=== PATIENT | female | born 1970 | race Two or more races ===

== ENCOUNTER 2016-10-19 08:38 | Day surgery (SDC) | payer OTHER ==
[2016-10-19 09:29] VITALS: TEMP 97.8
[2016-10-19 13:13] VITALS: BP 98/59; PULSE 76
== END 2016-10-19 13:15 | disposition home or self-care (01) ==
LOC: JASU-SURG 08:38
PROVIDERS: ATTEND Urology
PROC: 0T25X0Z Change Drainage Device in Kidney, External Approach (ICD-10-PCS; principal; 2016-10-19)
DX: N13.9 Obstructive and reflux uropathy, unspecified (principal); N20.0 Calculus of kidney
CPT/HCPCS: 50435; 76000-TC; 84703; A4358; C1769; C1887; C1894

== ENCOUNTER 2016-11-08 17:35 | Inpatient (IN) | payer OTHER ==
--- NOTE | 2016-11-08 17:57 | PDOC ---
History of Present Illness - General History Source: Patient Exam Limitations: No Limitations - History of Present Illness Initial Comments: 11/08/16 18:56 Patient is a 46 year old female with a significant past medical history of DM2, hyperlipidemia, hypertension, kidney stones with ureteral stent done October 2016 who presents to the ED sent for admission by Dr. Alcantar. Patient states that the doctor has plan to change the stent and lithotripsy. Patient is a poor historian, will contact the urologist. <Marylu Haynes - Last Filed: 11/08/16 19:52> <Dimple Portillo - Last Filed: 11/08/16 20:24> - General Chief Complaint: Pain Stated Complaint: URINARY PROBLEM/LOWER BACK PAIN Time Seen by Provider: 11/08/16 17:57 Past History <Marylu Haynes - Last Filed: 11/08/16 19:52> - Past Medical History Diabetes: Yes HTN: Yes Kidney Stones: Yes - Surgical History Cholecystectomy: Yes - Psycho/Social/Smoking Cessation Hx Anxiety: No Suicidal Ideation: No Smoking History: Never smoked Hx Alcohol Use: No Drug/Substance Use Hx: No Substance Use Type: None Hx Substance Use Treatment: No <Dimple Portillo - Last Filed: 11/08/16 20:24> - Past Medical History Allergies/Adverse Reactions: Allergies Allergy/AdvReac Type Severity Reaction Status Date / Time No Known Drug Allergies Allergy Verified 11/08/16 17:41 Home Medications: Ambulatory Orders Enalapril Maleate [Vasotec] 20 mg PO BID 11/08/16 Insulin Regular [NOVOLIN R VIAL *IVPUSH / ER / ICU Only*] 10 units SQ TID Metformin HCl [Metformin HCl ER] 1,000 mg PO DAILY 11/08/16 Review of Systems - Review of Systems Able to Perform ROS?: Yes Comments:: 11/08/16 18:56 CONSTITUTIONAL: Absent: fever, chills, diaphoresis, generalized weakness, malaise, loss of appetite HEENT: Absent: rhinorrhea, nasal congestion, throat pain, throat swelling, difficulty swallowing, mouth swelling, ear pain, eye pain, visual Changes CARDIOVASCULAR: Absent: chest pain, syncope, palpitations, irregular heart rate, lightheadedness , peripheral edema RESPIRATORY: Absent: cough, shortness of breath, dyspnea with exertion, orthopnea, wheezing, stridor, hemoptysis GASTROINTESTINAL: Absent: abdominal pain, abdominal distension, nausea, vomiting, diarrhea, constipation, melena, hematochezia GENITOURINARY: Absent: dysuria, frequency, urgency, hesitancy, hematuria, flank pain, genital pain MUSCULOSKELETAL: Absent: myalgia, arthralgia, joint swelling SKIN: Absent: rash, itching, pallor HEMATOLOGIC/IMMUNOLOGIC: Absent: easy bleeding, easy bruising, lymphadenopathy, frequent infections ENDOCRINE: Absent: unexplained weight gain, unexplained weight loss, heat intolerance, cold intolerance NEUROLOGIC: Absent: headache, focal weakness or paresthesias, dizziness, unsteady gait, seizure, mental status changes, bladder or bowel incontinence PSYCHIATRIC: Absent: anxiety, depression, suicidal or homicidal ideation, hallucinations. <Marylu Haynes - Last Filed: 11/08/16 19:52> *Physical Exam - Vital Signs Last Vital Signs Temp Pulse Resp BP Pulse Ox 99.0 F 93 H 18 131/85 98 11/08/16 17:37 11/08/16 17:37 11/08/16 17:37 11/08/16 17:37 11/08/16 17:37 - Physical Exam Comments: 11/08/16 18:57 GENERAL: Well developed, well nourished. Awake and alert. No acute distress. HEENT: Normocephalic, atraumatic. PERRLA, EOMI. No conjunctival pallor. Sclera are non- icteric. Moist mucous membranes. Oropharynx is clear. NECK: Supple. Full ROM. No JVD. Carotid pulses 2+ and symmetric, without bruits. No thyromegaly. No lymphadenopathy. CARDIOVASCULAR: Regular rate and rhythm. No murmurs, rubs, or gallops. Distal pulses are 2+ and symmetric. PULMONARY: No evidence of respiratory distress. Lungs clear to auscultation bilaterally. No wheezing, rales or rhonchi. ABDOMINAL: Soft. Non-tender. Non-distended. No rebound or guarding. No organomegaly. Normoactive bowel sounds. MUSCULOSKELETAL Normal range of motion at all joints. No bony deformities or tenderness. No CVA tenderness. EXTREMITIES: No cyanosis. No clubbing. No edema. No calf tenderness. SKIN: Warm and dry. Normal capillary refill. No rashes. No jaundice. NEUROLOGICAL: Alert, awake, appropriate. Cranial nerves 2-12 intact. No deficits to light touch and temperature in face, upper extremities and lower extremities. No motor deficits in the in face, upper extremities and lower extremities. Normoreflexic in the upper and lower extremities. Normal speech. PSYCHIATRIC: Cooperative. Good eye contact. Appropriate mood and affect. <Marylu Haynes - Last Filed: 11/08/16 19:52> - Vital Signs Last Vital Signs Temp Pulse Resp BP Pulse Ox 99.0 F 93 H 18 131/85 98 11/08/16 17:37 11/08/16 17:37 11/08/16 17:37 11/08/16 17:37 11/08/16 17:37 <Dimple Portillo - Last Filed: 11/08/16 20:24> ED Treatment Course - LABORATORY CBC & Chemistry Diagram: 11/08/16 19:00 11/08/16 19:00 <Marylu Haynes - Last Filed: 11/08/16 19:52> - LABORATORY CBC & Chemistry Diagram: 11/08/16 19:00 11/08/16 19:00 <Dimple Portillo - Last Filed: 11/08/16 20:24> Medical Decision Making - Medical Decision Making 11/08/16 19:10 A call was placed to Dr. Alcantar, awaiting a call back from Dr. Garcia who is special education kindergarten teacher. 11/08/16 19:[address] Garcia, who will contact Dr. Alcantar to discuss the case and will call back. 11/08/16 19:[address] Alcantar, who states that patient needs admission by hospitalist for nephrostomy tube replacement, dilatation and stone removal. <Marylu Haynes - Last Filed: 11/08/16 19:52> - Medical Decision Making 11/08/16 20:01 46-year-old female sent in by her clinic in [place] for admission for nephrostomy tube change. This nephrostomy tube was placed by Dr. Alcantar on October 19. She has had prior nephrostomy tubes placed in the past She has a long-standing history of kidney stones causing obstruction -No fever, no nausea, no vomiting and no hematuria Past medical history significant for type 2 diabetes with insulin use, hyperlipidemia, hypertension UA shows that she does have a urinary tract infection -He was started on Levaquin IV Review of her labs shows a normal CBC, hyperglycemia with glucose of 135. Her createnine is 1.2. I have no prior labs available I did speak with Dr. Marcello Alcantar and he will be the urologist on this case. The plan is to replace this nephrostomy tube and also to dilatation and stone removal 11/08/16 20:04 11/08/16 20:12 <Dimple Portillo - Last Filed: 11/08/16 20:24> *DC/Admit/Observation/Transfer - Attestations Scribe Attestion: 11/08/16 18:58 Documentation prepared by CELESTE Garcia, acting as medical anthropology director for Dimple Portillo MD. <Marylu Haynes - Last Filed: 11/08/16 19:52> - Discharge Dispostion Admit: Yes <Dimple Portillo - Last Filed: 11/08/16 20:24> Diagnosis at time of Disposition: Calculus of kidney, Complication of nephrostomy Urinary tract infection Qualifiers: Urinary tract infection type: site unspecified Hematuria presence: without hematuria Qualified Code(s): N39.0 - Urinary tract infection, site not specified - Referrals Referrals: Son Frank [Primary Care Provider] -
[2016-11-08 19:11] LABS: BASOPHIL 0.8 % (0-2.0); EOSINOPHIL 6.5 % (0-4.5); MCHC 32.5 g/dl (32.0-36.0); MEAN CELL VOLUME 83.1 fl (80-96); MEAN PLT VOLUME 7.7 fl (7.5-11.1); NEUTROPHILS 54.5 % (42.8-82.8); PLATELET COUNT 290 K/MM3 (134-434); RDW 14.2 % (11.6-15.6)
[2016-11-08 19:12] LABS: URINE APPEARANCE SLCLOUDY; URINE BILIRUBIN NEGATIVE (NEGATIVE); URINE COLOR STRAW; URINE GLUCOSE (UA) NEGATIVE (NEGATIVE); URINE KETONE NEGATIVE (NEGATIVE); URINE NITRITE NEGATIVE (NEGATIVE); URINE PROTEIN NEGATIVE (NEGATIVE); URINE UROBILINOGEN NEGATIVE E.U./dl (0.2-1.0)
[2016-11-08 19:13] LABS: URINE BLOOD 1+ (NEGATIVE); URINE LEUK ESTERASE 3+ (NEGATIVE)
[2016-11-08 19:16] LABS: URINE BACTERIA RARE /hpf (NONE SEEN); URINE MUCUS RARE; URINE RBC 28 /hpf (0-3); URINE WBC 263 /hpf (3-5)
[2016-11-08 19:26] LABS: INR 1.02 (0.82-1.09); PROTHROMBIN TIME (PATIENT) 11.2 SEC (9.98-11.88)
[2016-11-08 19:35] LABS: ALBUMIN 3.2 g/dl (3.4-5.0); BILIRUBIN,TOTAL 0.4 mg/dL (0.2-1.0); CALCIUM 9.4 mg/dL (8.5-10.1); COCKROFT - GAULT 72.624; CREATININE 1.2 mg/dL (0.55-1.02); TOT PROT 7.7 g/dl (6.4-8.2)
[2016-11-08] MEDS ORDERED: LEVOFLOXACIN 500 MG IVPB 100 ML IVPB ONE ×2 (19:45→19:52)
--- NOTE | 2016-11-08 21:03 | HP ---
<Marilyn Lewis - Last Filed: 11/09/16 00:37> CHIEF COMPLAINT: Presents for ureteral stent replacement PCP: Dr. Frank HISTORY OF PRESENT ILLNESS: 46 yo F with a PMHx of DM, HLD, HTN, kidney stones s/p ureteral stent in october, who was sent in by Dr. Alcantar for stent replacement and lithotripsy. Patient denies nausea, vomiting and diarrhea. Patient denies chest pain, palpitations and lightheadedness. ER course was notable for: (1)positive UA started on levaquin (2)ED contacted Dr. Alcantar whos planning ureteral stent replacement and lithotripsy in AM. Recent Travel: Denies PAST MEDICAL HISTORY: DM, HLD, HTN, kidney stones s/p ureteral stent in october PAST SURGICAL HISTORY: Ureteral stent placement 10/18 Social History: Smoking: Denies Alcohol: Denies Drugs: Denies Family History: Allergies No Known Drug Allergies Allergy (Verified 11/08/16 17:41) HOME MEDICATIONS: Home Medications Medication Instructions Recorded Enalapril Maleate [Vasotec] 20 mg PO BID 11/08/16 Insulin Regular [NOVOLIN R VIAL 10 units SQ TID 11/08/16 *IVPUSH / ER / ICU Only*] Metformin HCl [Metformin HCl ER] 1,000 mg PO DAILY 11/08/16 REVIEW OF SYSTEMS CONSTITUTIONAL: Absent: fever, chills, diaphoresis, generalized weakness, malaise, loss of appetite, weight change HEENT: Absent: rhinorrhea, nasal congestion, throat pain, throat swelling, difficulty swallowing, mouth swelling, ear pain, eye pain, visual changes CARDIOVASCULAR: Absent: chest pain, syncope, palpitations, irregular heart rate, lightheadedness , peripheral edema RESPIRATORY: Absent: cough, shortness of breath, dyspnea with exertion, orthopnea, wheezing, stridor, hemoptysis GASTROINTESTINAL: Absent: abdominal pain, abdominal distension, nausea, vomiting, diarrhea, constipation, melena, hematochezia GENITOURINARY: Absent: dysuria, frequency, urgency, hesitancy, hematuria, flank pain, genital pain MUSCULOSKELETAL: Absent: myalgia, arthralgia, joint swelling, back pain, neck pain SKIN: Absent: rash, itching, pallor HEMATOLOGIC/IMMUNOLOGIC: Absent: easy bleeding, easy bruising, lymphadenopathy, frequent infections ENDOCRINE: Absent: unexplained weight gain, unexplained weight loss, heat intolerance, cold intolerance NEUROLOGIC: Absent: headache, focal weakness or paresthesias, dizziness, unsteady gait, seizure, mental status changes, bladder or bowel incontinence PSYCHIATRIC: Absent: anxiety, depression, suicidal or homicidal ideation, hallucinations. PHYSICAL EXAMINATION Vital Signs - 24 hr 11/08/16 22:32 Temperature 98.6 F Pulse Rate [ 96 H Right Radial] Respiratory 20 Rate Blood Pressure 99/49 [Right Arm] O2 Sat by Pulse 98 Oximetry (%) GENERAL: Awake, alert, and fully oriented, in no acute distress. HEAD: Normal with no signs of trauma. EYES: Pupils equal, round and reactive to light, extraocular movements intact, sclera anicteric, conjunctiva clear. No lid lag. EARS, NOSE, THROAT: Ears normal, nares patent, oropharynx clear without exudates. Moist mucous membranes. NECK: Normal range of motion, supple without lymphadenopathy, JVD, or masses. LUNGS: Breath sounds equal, clear to auscultation bilaterally. No wheezes, and no crackles. No accessory muscle use. HEART: Regular rate and rhythm, normal S1 and S2 without murmur, rub or gallop. ABDOMEN: Soft, nontender, not distended, normoactive bowel sounds, no guarding, no rebound, no masses. No hepatomegaly or splenomegaly. MUSCULOSKELETAL: Normal range of motion at all joints. No bony deformities or tenderness. R CVA tenderness. R ureteral bag in place draining clear urine. UPPER EXTREMITIES: 2+ pulses, warm, well-perfused. No cyanosis. No clubbing. No peripheral edema. LOWER EXTREMITIES: 2+ pulses, warm, well-perfused. No calf tenderness. No peripheral edema. NEUROLOGICAL: Cranial nerves II-XII intact. Normal speech. Gait not assessed. PSYCHIATRIC: Cooperative. Good eye contact. Appropriate mood and affect. SKIN: Warm, dry, normal turgor, no rashes or lesions noted, normal capillary refill. CXR No acute process ASSESSMENT/PLAN: 46 yo F with a PMHx of who presents with ureteral stent replacement and lithotripsy. 1.) Nephrolithiasis -Ureteral stent placed for 17 with replacement to be done tomorrow -Lithotripsy to be done tomorrow -NPO -IVF -Urology consult -Type and screen -CBC coags in AM 2.) UTI -Continue ceftriaxone -Follow up U culture 3.) DM -Sliding scale -Finger sticks Q 4 hours -Hold PO meds -Restart Novolin tomorrow when patient has better PO intake 4.) SHARON possibly due to obstruction -Avoid nephrotoxins -trend DVT ppx -Low risk -Ambulate Admit to [facility] Documentation is prepared by Marilyn Lewis acting as medical researcher for Diana Saldivar D.O. <Diana Saldivar - Last Filed: 11/15/16 19:01> CHIEF COMPLAINT: PCP: HISTORY OF PRESENT ILLNESS: ER course was notable for: (1) (2) (3) Recent Travel: PAST MEDICAL HISTORY: PAST SURGICAL HISTORY: Social History: Smoking: Alcohol: Drugs: Family History: Allergies No Known Drug Allergies Allergy (Verified 11/08/16 17:41) HOME MEDICATIONS: Home Medications Medication Instructions Recorded Enalapril Maleate [Vasotec] 20 mg PO BID 11/08/16 Insulin Regular [NOVOLIN R VIAL 10 units SQ TID 11/08/16 *IVPUSH / ER / ICU Only*] Metformin HCl [Metformin HCl ER] 1,000 mg PO DAILY 11/08/16 REVIEW OF SYSTEMS CONSTITUTIONAL: Absent: fever, chills, diaphoresis, generalized weakness, malaise, loss of appetite, weight change HEENT: Absent: rhinorrhea, nasal congestion, throat pain, throat swelling, difficulty swallowing, mouth swelling, ear pain, eye pain, visual changes CARDIOVASCULAR: Absent: chest pain, syncope, palpitations, irregular heart rate, lightheadedness , peripheral edema RESPIRATORY: Absent: cough, shortness of breath, dyspnea with exertion, orthopnea, wheezing, stridor, hemoptysis GASTROINTESTINAL: Absent: abdominal pain, abdominal distension, nausea, vomiting, diarrhea, constipation, melena, hematochezia GENITOURINARY: Absent: dysuria, frequency, urgency, hesitancy, hematuria, flank pain, genital pain MUSCULOSKELETAL: Absent: myalgia, arthralgia, joint swelling, back pain, neck pain SKIN: Absent: rash, itching, pallor HEMATOLOGIC/IMMUNOLOGIC: Absent: easy bleeding, easy bruising, lymphadenopathy, frequent infections ENDOCRINE: Absent: unexplained weight gain, unexplained weight loss, heat intolerance, cold intolerance NEUROLOGIC: Absent: headache, focal weakness or paresthesias, dizziness, unsteady gait, seizure, mental status changes, bladder or bowel incontinence PSYCHIATRIC: Absent: anxiety, depression, suicidal or homicidal ideation, hallucinations. PHYSICAL EXAMINATION Vital Signs - 24 hr 11/08/16 17:37 Temperature 99.0 F Pulse Rate 93 H Respiratory 18 Rate Blood Pressure 131/85 O2 Sat by Pulse 98 Oximetry (%) GENERAL: Awake, alert, and fully oriented, in no acute distress. HEAD: Normal with no signs of trauma. EYES: Pupils equal, round and reactive to light, extraocular movements intact, sclera anicteric, conjunctiva clear. No lid lag. EARS, NOSE, THROAT: Ears normal, nares patent, oropharynx clear without exudates. Moist mucous membranes. NECK: Normal range of motion, supple without lymphadenopathy, JVD, or masses. LUNGS: Breath sounds equal, clear to auscultation bilaterally. No wheezes, and no crackles. No accessory muscle use. HEART: Regular rate and rhythm, normal S1 and S2 without murmur, rub or gallop. ABDOMEN: Soft, nontender, not distended, normoactive bowel sounds, no guarding, no rebound, no masses. No hepatomegaly or splenomegaly. MUSCULOSKELETAL: Normal range of motion at all joints. No bony deformities or tenderness. No CVA tenderness. UPPER EXTREMITIES: 2+ pulses, warm, well-perfused. No cyanosis. No clubbing. No peripheral edema. LOWER EXTREMITIES: 2+ pulses, warm, well-perfused. No calf tenderness. No peripheral edema. NEUROLOGICAL: Cranial nerves II-XII intact. Normal speech. Normal gait. PSYCHIATRIC: Cooperative. Good eye contact. Appropriate mood and affect. SKIN: Warm, dry, normal turgor, no rashes or lesions noted, normal capillary refill. Laboratory Results - last 24 hr 11/08/16 11/08/16 11/08/16 19:00 19:00 19:00 WBC 7.0 RBC 4.66 Hgb 12.6 Hct 38.7 MCV 83.1 MCHC 32.5 RDW 14.2 Plt Count 290 MPV 7.7 Neutrophils % 54.5 Lymphocytes % 30.8 Monocytes % 7.4 Eosinophils % 6.5 H Basophils % 0.8 INR Sodium 139 Potassium 3.8 Chloride 103 Carbon Dioxide 28 Anion Gap 8 BUN 18 Creatinine 1.2 H Creat Clearance w eGFR 48.15 Random Glucose 135 H Calcium 9.4 Total Bilirubin 0.4 AST 17 ALT 30 Alkaline Phosphatase 109 Total Protein 7.7 Albumin 3.2 L Serum , Qual Urine Color Straw Urine Appearance Slcloudy Urine pH 6.0 Urine Protein Negative Urine Glucose (UA) Negative Urine Ketones Negative Urine Blood 1+ H Urine Nitrite Negative Urine Bilirubin Negative Urine Urobilinogen Negative Ur Leukocyte Esterase 3+ H Urine RBC 28 Urine WBC 263 Urine Bacteria Rare Urine Mucus Rare 11/08/16 11/08/16 19:00 19:00 WBC RBC Hgb Hct MCV MCHC RDW Plt Count MPV Neutrophils % Lymphocytes % Monocytes % Eosinophils % Basophils % INR 1.02 Sodium Potassium Chloride Carbon Dioxide Anion Gap BUN Creatinine Creat Clearance w eGFR Random Glucose Calcium Total Bilirubin AST ALT Alkaline Phosphatase Total Protein Albumin Serum , Qual Negative Urine Color Urine Appearance Urine pH Urine Protein Urine Glucose (UA) Urine Ketones Urine Blood Urine Nitrite Urine Bilirubin Urine Urobilinogen Ur Leukocyte Esterase Urine RBC Urine WBC Urine Bacteria Urine Mucus ASSESSMENT/PLAN: Visit type - Emergency Visit Emergency Visit: Yes ED Registration Date: 11/08/16 Care time: The patient presented to the Emergency Department on the above date and was hospitalized for further evaluation of their emergent condition. - New Patient This patient is new to me today: Yes Date on this admission: 11/15/16 - Critical Care Critical Care patient: No
[2016-11-08] MEDS: SODIUM CHLORIDE 1,000 ML IV SCH (21:20)
[2016-11-08] MEDS: INSULIN SLIDING SCALE (NOVOLOG) 1 VIAL SQ SCH (21:46)
[2016-11-09 00:34] VITALS: BMI 29.5
[2016-11-09] MEDS ORDERED: INSULIN (NOVOLOG) ASPART 100 UNITS/ML 10ML VIAL ONE ×3 (01:26→21:32)
[2016-11-09] MEDS: INSULIN SLIDING SCALE (NOVOLOG) 1 VIAL SQ SCH ×6 (01:26→21:33)
[2016-11-09 08:16] LABS: MCH 27.6 pg (25.7-33.7); MCHC 33.4 g/dl (32.0-36.0); MEAN CELL VOLUME 82.5 fl (80-96); MEAN PLT VOLUME 7.5 fl (7.5-11.1); PLATELET COUNT 275 K/MM3 (134-434); RDW 14.1 % (11.6-15.6); WHITE BLOOD COUNT 6.3 K/mm3 (4.0-10.0)
[2016-11-09 08:39] LABS: INR 1.08 (0.82-1.09); PROTHROMBIN TIME (PATIENT) 11.9 SEC (9.98-11.88)
[2016-11-09 08:42] LABS: ACTIVATED PTT 28.5 SECONDS (26.9-34.4)
[2016-11-09] MEDS ORDERED: CEFTRIAXONE 1 GM in DEXTROSE 5%-WATER - 50 ML IVPB SCH (10:00)
[2016-11-09] MEDS: cefTRIAXone 1 GM/50 ML BAG (PRE-DOCKED) IVPB SCH (10:19)
[2016-11-09] MEDS: SODIUM CHLORIDE 1,000 ML IV SCH (10:49)
--- NOTE | 2016-11-09 12:21 | MSN ---
Progress Note (SOAP) - Subjective Chief Complaint: Right nephrostomy tube exchange with lithotripsy History of Present Illness: MEDICAL STUDENT NOTE The Patient is a 46 year old female with past medical history significant for nephrolithiasis causing obstruction, s/p right nephrostomy tube placement on October 19 2016, insulin dependent diabetes mellitus, and HTN. The patient was sent to the ED on 11/08 by her urologist, Dr. Alcantar, to be admitted for a right nephrostomy tube change and stone removal. The patient had a complaint of a headache today. She denied fever, chills, nausea, fever, vomiting, hematuria, dysuria, abdominal pain, flank pain, and shortness of breath. The patient is able to drain her own nephrostomy bag. - Current Medications Current Medications: Active Medications Ceftriaxone Sodium (Rocephin 1gm Ivpb (Pre-Docked)) 1 gm IVPB DAILY [facility] Last Admin: 11/09/16 10:19 Dose: 1 gm Sodium Chloride (Normal Saline -) 1,000 mls @ 100 mls/hr IV ASDIR [facility] Last Admin: 11/09/16 10:49 Dose: 100 mls/hr Insulin Aspart (Novolog Vial Sliding Scale -) 1 vial SQ Q4HPO [facility] PRN Reason: Protocol Last Admin: 11/09/16 10:21 Dose: 2 units - Objective Vital Signs: Vital Signs Temperature 98.2 F 11/09/16 08:00 Pulse Rate 81 11/09/16 08:00 Respiratory Rate 18 11/09/16 08:00 Blood Pressure 100/70 11/09/16 08:00 O2 Sat by Pulse Oximetry (%) 98 11/09/16 09:00 Constitutional: Yes: Well Nourished, No Distress, Calm, Diaphoresis Eyes: Yes: WNL, Conjunctiva Clear HENT: Yes: WNL, Atraumatic, Normocephalic. No: Drooling, Hoarseness Neck: Yes: WNL, Supple, Trachea Midline Cardiovascular: Yes: WNL, Regular Rate and Rhythm, S1, S2. No: Bruit, Murmur, Rub, S3, S4 Respiratory: Yes: WNL, Regular, CTA Bilaterally. No: Accessory Muscle Use, Cough, Rales, Rhonchi, SOB, SOB on Exertion, Stridor, Wheezes Gastrointestinal: Yes: WNL, Normal Bowel Sounds, Soft. No: Ascites, Hepatomegaly, Splenomegaly, Tenderness, Tenderness, Epigastrium, Tenderness, Rebound, Vomiting Genitourinary: Yes: Other (nephrostomy tube placement on right side). No: CVA Tenderness - Left Extremities: Yes: WNL. No: Calf Tenderness, Cold, Cyanosis Peripheral Pulses WNL: Yes Peripheral Pulses: Left Radial: 2+, Right Radial: 2+, Left Doralis Pedis: 2+, Right Dorsalis Pedis: 2+ Edema: No (No edema b/l UE and LE) Integumentary: Yes: WNL Neurological: Yes: WNL, Alert, Oriented. No: Dysarthria, Unsteady Gait Psychiatric: Yes: WNL, Alert, Oriented Labs Lab Results: CBC, BMP 11/09/16 06:38 Assessment/Plan MEDICAL STUDENT ASSESSMENT AND PLAN #Nephrostomy tube replacement with lithotripsy, possible stent replacement - ER note states that author spoke to Dr. Alcantar and that patient will have nephrostomy tube replacement with dilation and stone removal but Medicine H&P note states that patient will undergo stent replacement. Will await Dr. Alcantar' s note. - NPO - Type and screen completed - Anticipate procedure will occur today #UTI - U/A shows 1+ blood and 3+ leukocyte esterase - Patient received levofloxacin 500mg on 11/08 - Patient now on ceftriaxone 1gm IVPB qD - Waiting for urine culture results # Diabetes mellitus - Hold metformin due to NPO status - Insulin Apart sliding scale with finger sticks q4hrs #Elevated Creatinine - Possibly due to ureteral stone - Hold nephrotoxic drugs (Enalapril) - Follow with repeat BMP #HTN - Holding enalapril due to elevated creatinine - Blood pressures today have trended 100-128/66-82, will continue to monitor #F/E/N - Fluids: NS 1000 mls 100/hr - Electrolytes: No intervention needed - Nutrition: NPO until after procedure Disposition: Waiting for patient to undergo surgery and waiting for urine culture to return. Anticipate discharge if no complications for tomorrow morning.
--- NOTE | 2016-11-09 13:38 | EKG ---
Test Reason : Blood Pressure : / mmHG Vent. Rate : 080 BPM Atrial Rate : 080 BPM P-R Int : 154 ms QRS Dur : 082 ms QT Int : 376 ms P-R-T Axes : 071 086 062 degrees QTc Int : 433 ms NORMAL SINUS RHYTHM NORMAL ECG NO PREVIOUS ECGS AVAILABLE Confirmed by SYLVIE AQUINO MD ([id number]) on 11/09/2016 1:38:04 PM Referred By: Confirmed By:SYLVIE AQUINO MD
--- NOTE | 2016-11-09 13:45 | PN ---
Teaching Attending Note Name of Resident: Manda Champagne ATTENDING PHYSICIAN STATEMENT I saw and evaluated the patient. I reviewed the resident's note and discussed the case with the resident. I agree with the resident's findings and plan as documented. SUBJECTIVE:currently asymptomatic. states she noted the output into nephrostomy bag has been more concentrated than usual. denies dysuria, urinary frequency, hematuria, N/V/C/D R nephrostomy tube placed 10 weeks ago OBJECTIVE: Last Vital Signs Temp Pulse Resp BP Pulse Ox 98.2 F 81 18 100/70 98 11/09/16 08:00 11/09/16 08:00 11/09/16 08:00 11/09/16 08:00 11/09/16 09:00 General NAD CV S1 S2 RRR no murmur/rub/gallop LUngs CTA B/L no wheezing/rales/rhonchi Abdomen soft NT/ND no suprapubic tenderness. R sided nephrostomy tube in place draining clear fluid ASSESSMENT AND PLAN: 46yo F with PMH DM, HTN and nephrolithasis presented to the ER and was admitted for further evaluation of their emergent condition 1. Nephrolithasis with R sided nephrostomy tube- NPO for tube exchange and lithotripsy by urology tomorrow. pain control. d/c IVF 2. SHARON- possible due to infection. was on IVF. will d/c for now. repeat labs in the AM. avoid nephrotoxic agents. hold ACEI 3. UTI- as per pt has not been on abx recently. asymptomatic but with expected procedure tomorrow with urological manipulation will treat. On ceftriaxone day 1. f/u UCx 4. DM- controlled here. hold oral agents. iss, bgm. diabetic patient 5. DVT ppx- EAM
--- NOTE | 2016-11-09 14:54 | PN ---
Physical Exam: SUBJECTIVE: Patient seen and examined by me at bedside. Patient sent for right nephrostomy tube change and lithotripsy to be done tomorrow. Patient reports nephrostomy bag draining more concentrated urine than usual. Patient drains the nephrostomy bag on her own. However, she denies any pain or suprapubic tenderness. Otherwise, patient denies fever, chills, nausea, vomiting, diarrhea , chest pain, palpitations, shortness of breath, abdominal pain. OBJECTIVE: Vital Signs Period Temp Pulse Resp BP Sys/Lara Pulse Ox Last 24 Hr 97.4 F-98.6 F 72-96 16-20 99-128/49-82 98-99 GENERAL: The patient is awake, alert, and fully oriented, in no acute distress. LUNGS: Breath sounds equal, clear to auscultation bilaterally, no wheezes, no crackles, no accessory muscle use. HEART: Regular rate and rhythm, S1, S2 without murmur, rub or gallop. ABDOMEN: Soft, nontender, nondistended, no guarding, no suprapubic tenderness. Right Nephrostomy tube with clear drainage. EXTREMITIES: No peripheral edema SKIN: Warm, dry, normal turgor, no rashes or lesions noted Laboratory Results - last 24 hr 11/08/16 11/08/16 11/09/16 23:15 23:16 00:40 WBC RBC Hgb Hct MCV MCHC RDW Plt Count MPV INR PTT (Actin FS) POC Glucometer 169 Blood Type A POSITIVE A POSITIVE Antibody Screen Negative 11/09/16 11/09/16 11/09/16 05:32 06:38 06:38 WBC 6.3 RBC 4.61 Hgb 12.7 Hct 38.0 MCV 82.5 MCHC 33.4 RDW 14.1 Plt Count 275 MPV 7.5 INR 1.08 PTT (Actin FS) 28.5 POC Glucometer 130 Blood Type Antibody Screen 11/09/16 11/09/16 10:18 13:50 WBC RBC Hgb Hct MCV MCHC RDW Plt Count MPV INR PTT (Actin FS) POC Glucometer 153 110 Blood Type Antibody Screen Active Medications Generic Name Dose Route Start Last Admin Trade Name Freq PRN Reason Stop Dose Admin Ceftriaxone Sodium 1 gm 11/09/16 10:00 11/09/16 10:19 Rocephin 1gm Ivpb (Pre-Docked) IVPB 1 gm DAILY MORENITA Administration Insulin Aspart 1 vial 11/08/16 21:15 11/09/16 13:52 Novolog Vial Sliding Scale - SQ Not Given Q4HPO MORENITA Protocol Chest X-ray: No acute pathology ASSESSMENT/PLAN: Patient is a 46 year old female with a PMHx of obstructive nephrolithiasis s/p nephrostomy tube on 10/19/2016, IDDM, and HTN who was sent here by he urologist , Dr. Alcantar, for right nephrostomy tube replacement and lithotripsy. Patient to have procedures done 11/10/2016. Admitted to med/surg for further monitoring and management. Nephrolithiasis s/p Right nephrostomy tube -Right nephrostomy tube replacement tomorrow (11/10/16) -Lithotripsy tomorrow (11/10/16) -Pain control with ad needed -NPO after midnight for procedure Acute Renal Failure -Likely secondary to obstructive nephrolithiasis -Creatinine 1.2 -Was on IV fluids but discontinued today -Avoid nephrotoxic medications -Repeat BMP in the morning Urinary Tract Infection -U/A revealed 3+ Leukocyte Esterase -Urine cultures pending -Currently asymptomatic and no recent antibiotics -Ceftriaxone 1gm day #1 for urological procedure tomrrow IDDM -Oral agents on hold -ISS -BGM HTN -Enalapril on hold due to ARF -Blood pressure controlled -Continue to monitor BP F/E/N -On no fluids -Electrolytes wnl -Diabetic Diet. NPO after midnight Prophylaxis -Ambulates Disposition -Patient scheduled for Right nephrostomy tube replacement and Lithotripsy in the morning Visit type - Emergency Visit Emergency Visit: Yes ED Registration Date: 11/08/16 Care time: The patient presented to the Emergency Department on the above date and was hospitalized for further evaluation of their emergent condition. - New Patient This patient is new to me today: Yes Date on this admission: 11/09/16 - Critical Care Critical Care patient: No
[2016-11-09] MEDS: ACETAMINOPHEN 325 MG TABLET (FP) PO PRN (21:51)
[2016-11-10] MEDS: INSULIN SLIDING SCALE (NOVOLOG) 1 VIAL SQ SCH ×6 (01:53→21:46)
[2016-11-10 09:05] LABS: MCH 27.4 pg (25.7-33.7); MCHC 32.5 g/dl (32.0-36.0); MEAN CELL VOLUME 84.5 fl (80-96); MEAN PLT VOLUME 7.6 fl (7.5-11.1); PLATELET COUNT 326 K/MM3 (134-434); RDW 14.4 % (11.6-15.6); WHITE BLOOD COUNT 6.2 K/mm3 (4.0-10.0)
[2016-11-10 09:32] LABS: INR 1.07 (0.82-1.09); PROTHROMBIN TIME (PATIENT) 11.8 SEC (9.98-11.88)
[2016-11-10 09:33] LABS: CALCIUM 9.6 mg/dL (8.5-10.1); COCKROFT - GAULT 85.6545
[2016-11-10 09:35] LABS: ACTIVATED PTT 29.4 SECONDS (26.9-34.4)
--- NOTE | 2016-11-10 09:57 | MSN ---
Progress Note (SOAP) - Subjective Chief Complaint: Right nephrostomy tube exchange with lithotripsy History of Present Illness: The Patient is a 46 year old female with past medical history significant for nephrolithiasis causing obstruction s/p right nephrostomy tube placement on October 19 2016, IDDM, and HTN. The patient was sent to the ED on 11/08 by her urologist, Dr. Alcantar, to be admitted for a right nephrostomy tube change and stone removal. She is able to drain her own nephrostomy bag. Today, the patient denies fever, chills, N/V, constipation, diarrhea, dysuria, hematuria, abdominal pain, flank pain, suprapubic pain, back pain, chest pain or shortness of breath. She verbalized understanding of her nephrostomy bag change and lithotripsy to be done this week. - Current Medications Current Medications: Active Medications Acetaminophen (Tylenol -) 650 mg PO Q4H PRN PRN Reason: FEVER OR PAIN Last Admin: 11/09/16 21:51 Dose: 650 mg Ceftriaxone Sodium (Rocephin 1gm Ivpb (Pre-Docked)) 1 gm IVPB DAILY MORENITA Last Admin: 11/09/16 10:19 Dose: 1 gm Insulin Aspart (Novolog Vial Sliding Scale -) 1 vial SQ Q4HPO MORENITA PRN Reason: Protocol Last Admin: 11/10/16 06:19 Dose: 2 units - Objective Vital Signs: Vital Signs Temperature 97.7 F 11/10/16 07:56 Pulse Rate 78 11/10/16 07:56 Respiratory Rate 18 11/10/16 07:56 Blood Pressure 141/89 11/10/16 07:56 O2 Sat by Pulse Oximetry (%) 98 11/09/16 21:00 Constitutional: Yes: Well Nourished, No Distress, Calm Eyes: Yes: WNL, Conjunctiva Clear, EOM Intact Cardiovascular: Yes: Regular Rate and Rhythm, S1, S2. No: Gallop, Murmur Respiratory: Yes: WNL, Regular, CTA Bilaterally. No: Rales, SOB, Tachypnea, Wheezes Gastrointestinal: Yes: WNL, Soft. No: Distention, Palpable Mass, Pulsatile Mass , Tenderness, Tenderness, Epigastrium, Tenderness, Rebound Genitourinary: No: CVA Tenderness - Left, CVA Tenderness - Right, Hematuria Edema: No Wound/Incision: Yes: Clean/Dry, Well Approximated. No: Dressing Dry and Intact Neurological: Yes: WNL, Alert, Oriented Psychiatric: Yes: WNL, Alert, Oriented Labs Lab Results: CBC, BMP 11/10/16 08:00 11/10/16 08:00 Laboratory Results - last 24 hr 11/09/16 11/09/16 11/09/16 10:18 13:50 17:48 WBC RBC Hgb Hct MCV MCHC RDW Plt Count MPV INR PTT (Actin FS) Sodium Potassium Chloride Carbon Dioxide Anion Gap BUN Creatinine POC Glucometer 153 110 179 Random Glucose Calcium 11/09/16 11/10/16 11/10/16 21:29 01:50 05:15 WBC RBC Hgb Hct MCV MCHC RDW Plt Count MPV INR PTT (Actin FS) Sodium Potassium Chloride Carbon Dioxide Anion Gap BUN Creatinine POC Glucometer 159 164 166 Random Glucose Calcium 11/10/16 11/10/16 11/10/16 08:00 08:00 08:00 WBC 6.2 RBC 5.40 H Hgb 14.8 D Hct 45.7 H D MCV 84.5 MCHC 32.5 RDW 14.4 Plt Count 326 MPV 7.6 INR 1.07 PTT (Actin FS) 29.4 Sodium 136 Potassium 4.0 Chloride 99 Carbon Dioxide 28 Anion Gap 9 BUN 15 Creatinine 1.0 POC Glucometer Random Glucose 190 H D Calcium 9.6 Last Vital Signs Temp Pulse Resp BP Pulse Ox 97.7 F 78 18 141/89 98 11/10/16 07:56 11/10/16 07:56 11/10/16 07:56 11/10/16 07:56 11/09/16 21:00 Assessment/Plan 46yo F w/ PMHx of obstructive nephrolithiasis s/p nephrostomy tube on 10/19/2016 , IDDM, and HTN, who was sent here by urologist Dr. Alcantar for right nephrostomy tube replacement and lithotripsy on 11/10. Admitted to med/surg for further monitoring and management. Nephrolithiasis s/p right nephrostomy tube -Right nephrostomy tube replacement and lithotripsy on 11/[address] Frias -Dr Frias requesting stent placement via IR today 11/10 -Pain control as needed -Has been NPO since midnight -not on anticoagulation or antiplatelet therapy Acute Renal Failure -secondary to obstructive nephrolithiasis -Creatinine 1.0, trending downwards since 11/08/16 -Avoid nephrotoxic medications Urinary Tract Infection -U/A revealed 3+ Leukocyte Esterase on 11/08 -Clean catch urine cultures show gram negative lactose fermenting bacilli -Ceftriaxone 1gm Day 2 IDDM -Oral agents on hold -ISS -BGM HTN -Enalapril on hold due to ARF -Blood pressure controlled -Continue to monitor BP F/E/N -No IV fluids -Electrolytes wnl -Diabetic Diet. Prophylaxis -Ambulates Disposition -Scheduled for R nephrostomy tube replacement and lithotripsy today at 11am
[2016-11-10] MEDS ORDERED: INSULIN (NOVOLOG) ASPART 100 UNITS/ML 10ML VIAL ONE ×4 (10:00→21:41)
[2016-11-10] MEDS: cefTRIAXone 1 GM/50 ML BAG (PRE-DOCKED) IVPB SCH (10:02)
--- NOTE | 2016-11-10 15:59 | PN ---
Physical Exam: SUBJECTIVE: Patient seen and examined by me at bedside. No overnight events noted. Patient was to have a nephrostomy tube replacement today but postponed until tomorrow. Urologist requested stent placement by IR today. Nephrostomy tube draining and patient is self changing it. Otherwise, patient denies fever, chills, nausea, vomiting, diarrhea, shortness of breath, chest pain, palpitations. OBJECTIVE: Vital Signs Period Temp Pulse Resp BP Sys/Lara Pulse Ox Last 24 Hr 97.4 F-98.8 F 66-98 18-20 126-141/69-89 98-99 GENERAL: The patient is awake, alert, and fully oriented, in no acute distress. LUNGS: Breath sounds equal, clear to auscultation bilaterally, no wheezes, no crackles, no accessory muscle use. HEART: Regular rate and rhythm, S1, S2 without murmur, rub or gallop. ABDOMEN: Soft, nontender, nondistended, no guarding, no suprapubic tenderness. Right Nephrostomy tube with clear drainage. EXTREMITIES: No peripheral edema SKIN: Warm, dry, normal turgor, no rashes or lesions noted Laboratory Results - last 24 hr 11/09/16 11/09/16 11/10/16 17:48 21:29 01:50 WBC RBC Hgb Hct MCV MCHC RDW Plt Count MPV INR PTT (Actin FS) Sodium Potassium Chloride Carbon Dioxide Anion Gap BUN Creatinine POC Glucometer 179 159 164 Random Glucose Calcium 11/10/16 11/10/16 11/10/16 05:15 08:00 08:00 WBC 6.2 RBC 5.40 H Hgb 14.8 D Hct 45.7 H D MCV 84.5 MCHC 32.5 RDW 14.4 Plt Count 326 MPV 7.6 INR 1.07 PTT (Actin FS) 29.4 Sodium Potassium Chloride Carbon Dioxide Anion Gap BUN Creatinine POC Glucometer 166 Random Glucose Calcium 11/10/16 11/10/16 11/10/16 08:00 09:54 14:02 WBC RBC Hgb Hct MCV MCHC RDW Plt Count MPV INR PTT (Actin FS) Sodium 136 Potassium 4.0 Chloride 99 Carbon Dioxide 28 Anion Gap 9 BUN 15 Creatinine 1.0 POC Glucometer 179 153 Random Glucose 190 H D Calcium 9.6 Active Medications Generic Name Dose Route Start Last Admin Trade Name Freq PRN Reason Stop Dose Admin Acetaminophen 650 mg 11/09/16 21:42 11/09/16 21:51 Tylenol - PO 650 mg Q4H PRN Administration FEVER OR PAIN Ceftriaxone Sodium 1 gm 11/09/16 10:00 11/10/16 10:02 Rocephin 1gm Ivpb (Pre-Docked) IVPB 1 gm DAILY MORENITA Administration Insulin Aspart 1 vial 11/08/16 21:15 11/10/16 14:08 Novolog Vial Sliding Scale - SQ 2 units Q4HPO MORENITA Administration Protocol ASSESSMENT/PLAN: 46yo F w/ PMHx of obstructive nephrolithiasis s/p nephrostomy tube on 10/19/2016 , IDDM, and HTN, who was sent here by urologist Dr. Alcantar for right nephrostomy tube replacement and lithotripsy. Admitted to med/surg for further monitoring and management. Nephrolithiasis s/p right nephrostomy tube -Right nephrostomy tube replacement and lithotripsy on 11/[address] Frias -Dr Alcantar requesting stent placement via IR today 11/10 -Pain control with Tylenol 650mg Q4H PRN -Has been NPO since midnight -not on anticoagulation or antiplatelet therapy Acute Renal Failure- Improved -secondary to obstructive nephrolithiasis -Creatinine 1.0, trending downwards since 11/08/16 and improved with IV fluids -Avoid nephrotoxic medications Urinary Tract Infection -U/A revealed 3+ Leukocyte Esterase on 11/08 -Clean catch urine cultures show gram negative lactose fermenting bacilli -Ceftriaxone 1gm Day #2 for urological procedure tomorrow IDDM -Oral agents on hold -ISS -BGM HTN -Enalapril on hold due to ARF -Blood pressure controlled -Continue to monitor BP F/E/N -No IV fluids -Electrolytes wnl -Diabetic Diet. Prophylaxis -Ambulates Disposition -Scheduled for stent placement via IR today Visit type - Emergency Visit Emergency Visit: Yes ED Registration Date: 11/08/16 Care time: The patient presented to the Emergency Department on the above date and was hospitalized for further evaluation of their emergent condition. - New Patient This patient is new to me today: No - Critical Care Critical Care patient: No
--- NOTE | 2016-11-10 17:10 | PN ---
Teaching Attending Note Name of Resident: Manda Champagne ATTENDING PHYSICIAN STATEMENT I saw and evaluated the patient. I reviewed the resident's note and discussed the case with the resident. I agree with the resident's findings and plan as documented. SUBJECTIVE: Patient has no complaints. OBJECTIVE: Vital Signs Period Temp Pulse Resp BP Sys/Lara Pulse Ox Last 24 Hr 97.4 F-98.8 F 66-98 16-20 126-141/69-89 96-99 HEART: S1S2, RRR LUNGS: Clear ABDOMEN: Soft, non-tender, non-distended, normal BS EXTREMITIES: No edema ASSESSMENT AND PLAN: This is a 46-year-old woman with a history of type 2 DM, HTN, nephrolithiasis who presented to the ER for ureteral stent replacement. 1. Right renal stone with obstruction, s/p nephrostomy 10/19 - Plan for exchange of nephrostomy tube and lithotripsy 2. Acute kidney injury - Improved with IV fluid and holding Vasotec 3. UTI - Continue Rocephin (day 2), had one dose of Levaquin prior - Urine culture growing gram negative rods 4. Type 2 DM - Continue Novolog sliding scale 5. HTN - Vasotec held secondary to SHARON
[2016-11-10] MEDS: ACETAMINOPHEN 325 MG TABLET (FP) PO PRN (18:16)
[2016-11-11] MEDS: INSULIN SLIDING SCALE (NOVOLOG) 1 VIAL SQ SCH ×6 (02:07→22:01)
--- NOTE | 2016-11-11 09:18 | MSN ---
Progress Note (SOAP) - Subjective Chief Complaint: Right nephrostomy tube exchange with lithotripsy History of Present Illness: The Patient is a 46 year old female with past medical history significant for nephrolithiasis causing obstruction s/p right nephrostomy tube placement on October 19 2016, IDDM, and HTN. The patient was sent to the ED on 11/08 by her urologist, Dr. Alcantar, to be admitted for a right nephrostomy tube change and stone removal. Yesterday, IR attempted to place a uretreral stent in patient's right kidney. As per Dr Merchant's note, stent placement was unsuccessful. Access could not be obtained via the nephrostomy bag - an obstruction prevented the stent from passing. A second insertion into the more inferior portion of R kidney yielded purulent discharge from the kidney. The second nephrostomy bag was left in place. As per his note, Dr Merchant will consult with Dr Frias on the care of his patient. Both nephrostomy bags are draining slightly blood-tinged, light yellow urine. Today, the patient admits to feeling hot, and having some right sided back pain. She denies fever, chills, N/V, constipation, diarrhea, dysuria, hematuria , abdominal pain, suprapubic pain, back pain, chest pain or shortness of breath. - Current Medications Current Medications: Active Medications Acetaminophen (Tylenol -) 650 mg PO Q4H PRN PRN Reason: FEVER OR PAIN Last Admin: 11/10/16 18:16 Dose: 650 mg Ceftriaxone Sodium (Rocephin 1gm Ivpb (Pre-Docked)) 1 gm IVPB DAILY [facility] Last Admin: 11/10/16 10:02 Dose: 1 gm Insulin Aspart (Novolog Vial Sliding Scale -) 1 vial SQ Q4HPO [facility] PRN Reason: Protocol Last Admin: 11/11/16 06:37 Dose: 4 units Last Vital Signs Temp Pulse Resp BP Pulse Ox 99.6 F 96 H 20 140/82 99 11/11/16 06:24 11/11/16 06:00 11/11/16 06:00 11/11/16 06:00 11/10/16 21:00 - Objective Vital Signs: Vital Signs Temperature 99.6 F 11/11/16 06:24 Pulse Rate 96 H 11/11/16 06:00 Respiratory Rate 20 11/11/16 06:00 Blood Pressure 140/82 11/11/16 06:00 O2 Sat by Pulse Oximetry (%) 99 11/10/16 21:00 Constitutional: Yes: Well Nourished, No Distress, Calm Cardiovascular: Yes: Regular Rate and Rhythm, S1, S2. No: Murmur, Rub Respiratory: Yes: WNL, Regular, CTA Bilaterally. No: Cough, Rales, Rhonchi, SOB , Tachypnea, Wheezes Gastrointestinal: Yes: WNL, Soft, Tenderness (RUQ to deep palpation) Genitourinary: Yes: WNL, CVA Tenderness - Right. No: CVA Tenderness - Left Wound/Incision: Yes: Clean/Dry, Dressing Dry and Intact Psychiatric: Yes: WNL, Alert, Oriented Labs Lab Results: CBC, BMP 11/10/16 08:00 11/10/16 08:00 Laboratory Results - last 24 hr 11/10/16 11/10/16 11/10/16 08:00 08:00 09:54 INR 1.07 PTT (Actin FS) 29.4 Sodium 136 Potassium 4.0 Chloride 99 Carbon Dioxide 28 Anion Gap 9 BUN 15 Creatinine 1.0 POC Glucometer 179 Random Glucose 190 H D Calcium 9.6 11/10/16 11/10/16 11/10/16 14:02 18:05 20:44 INR PTT (Actin FS) Sodium Potassium Chloride Carbon Dioxide Anion Gap BUN Creatinine POC Glucometer 153 161 253 Random Glucose Calcium 11/11/16 11/11/16 02:03 05:52 INR PTT (Actin FS) Sodium Potassium Chloride Carbon Dioxide Anion Gap BUN Creatinine POC Glucometer 236 213 Random Glucose Calcium Assessment/Plan 46yo F w/ PMHx of obstructive nephrolithiasis s/p nephrostomy tube on 10/19/2016 , IDDM, and HTN, who was sent here by urologist Dr. Alcantar for right nephrostomy tube replacement and lithotripsy on 11/10. Admitted to med/surg for further monitoring and management. Nephrolithiasis s/p right nephrostomy tube -Stent placement via IR on 11/10 was unsuccessful due to purulent material draining and obstruction of stent during placement, as per Dr. Merchant's note -nephrostomy tube urine culture pending -Right nephrostomy tube replacement and lithotripsy on 11/[address] Frias was cancelled due to ongoing infection -will speak to Dr Frias regarding next step -will order renal u/s with contrast -BMP, CBC -Pain control as needed -Has been NPO since midnight -not on anticoagulation or antiplatelet therapy Urinary Tract Infection -U/A revealed 3+ Leukocyte Esterase on 11/08 -Clean catch urine cultures show gram negative lactose fermenting bacilli -Ceftriaxone 1gm Day 3 Acute Renal Failure - Improved -secondary to obstructive nephrolithiasis -Creatinine 1.0, better vs 11/08/16 -Avoid nephrotoxic medications IDDM -Oral agents on hold -ISS -BGM HTN -Enalapril on hold due to ARF -Blood pressure controlled -Continue to monitor BP F/E/N -No IV fluids -Electrolytes wnl -Diabetic Diet. Prophylaxis -Ambulates Disposition -Scheduled for R nephrostomy tube replacement and lithotripsy today
--- NOTE | 2016-11-11 09:26 | PN ---
Addendum entered and electronically signed by Manda Champagne RES 11/11/16 16:31 : Repeat Creatinine 1.3 which increased from last reading. Will manage with IV fluids Original Note: Physical Exam: SUBJECTIVE: Patient seen and examined by me at bedside. Yesterday, IR attempted to place a stent in the right kidney but was unsuccessful due to obstruction. A second insertion was attempted in the inferior portion of the first nephrostomy tube and purulent discharge was draining. Patient now has two right nephrostomy tubes draining serosanguinous fluid. Patient today reports feeling more tired and warm. Procedure for stent placement and lithotripsy cancelled today due to possible infectious process. Will order CT of abdo and pelvis to rule out any underlying abscess. Otherwise, patient denies chill, nausea, vomiting, abdominal pain, shortness of breath, chest pain, palpitations. OBJECTIVE: Vital Signs Period Temp Pulse Resp BP Sys/Lara Pulse Ox Last 24 Hr 98 F-100.6 F 68-96 16-20 108-140/68-89 96-99 GENERAL: The patient is awake, alert, and fully oriented, in no acute distress. LUNGS: Breath sounds equal, clear to auscultation bilaterally, no wheezes, no crackles, no accessory muscle use. HEART: Regular rate and rhythm, S1, S2 without murmur, rub or gallop. ABDOMEN: Soft, mild RLQ tenderness upon palpation, nondistended, no guarding, no suprapubic tenderness. Two Right Nephrostomy tube with serosanguinous drainage EXTREMITIES: No peripheral edema SKIN: Warm, dry, normal turgor, no rashes or lesions noted Laboratory Results - last 24 hr 11/10/16 11/10/16 11/10/16 08:00 08:00 09:54 INR 1.07 PTT (Actin FS) 29.4 Sodium 136 Potassium 4.0 Chloride 99 Carbon Dioxide 28 Anion Gap 9 BUN 15 Creatinine 1.0 POC Glucometer 179 Random Glucose 190 H D Calcium 9.6 11/10/16 11/10/16 11/10/16 14:02 18:05 20:44 INR PTT (Actin FS) Sodium Potassium Chloride Carbon Dioxide Anion Gap BUN Creatinine POC Glucometer 153 161 253 Random Glucose Calcium 11/11/16 11/11/16 02:03 05:52 INR PTT (Actin FS) Sodium Potassium Chloride Carbon Dioxide Anion Gap BUN Creatinine POC Glucometer 236 213 Random Glucose Calcium Active Medications Generic Name Dose Route Start Last Admin Trade Name Freq PRN Reason Stop Dose Admin Acetaminophen 650 mg 11/09/16 21:42 11/10/16 18:16 Tylenol - PO 650 mg Q4H PRN Administration FEVER OR PAIN Ceftriaxone Sodium 1 gm 11/09/16 10:00 11/10/16 10:02 Rocephin 1gm Ivpb (Pre-Docked) IVPB 1 gm DAILY MORENITA Administration Insulin Aspart 1 vial 11/08/16 21:15 11/11/16 06:37 Novolog Vial Sliding Scale - SQ 4 units Q4HPO MORENITA Administration Protocol ASSESSMENT/PLAN: 46yo F w/ PMHx of obstructive nephrolithiasis s/p nephrostomy tube on 10/19/2016 , IDDM, and HTN, who was sent here by urologist Dr. Alcantar for right nephrostomy tube replacement and lithotripsy. Admitted to med/surg for further monitoring and management. Nephrolithiasis s/p right nephrostomy tube -Attempted ureteral stent but unsuccessful due to obstruction and purulent drainage. -Right nephrostomy tube replacement, lithotripsy, and stent placement cancelled due to possible infection -Will order CT of abdo/pelvis to rule out abscess -Will repeat labs -Pain control with Tylenol 650mg Q4H PRN Acute Renal Failure- Improved -secondary to obstructive nephrolithiasis -Creatinine tending downwards since 11/08/16 and improved with IV fluids -Avoid nephrotoxic medications Urinary Tract Infection -U/A revealed 3+ Leukocyte Esterase on 11/08 -Clean catch urine cultures show gram negative lactose fermenting bacilli -Ceftriaxone 1gm Day #3 for urological procedure tomorrow IDDM -Oral agents on hold -ISS -BGM HTN -Enalapril on hold due to ARF -Blood pressure controlled -Continue to monitor BP F/E/N -No IV fluids -Electrolytes wnl -NPO until CT abdo/pelvis completed Prophylaxis -Ambulates Disposition -CT abdo/pelvis pending to rule out abscess Visit type - Emergency Visit Emergency Visit: Yes ED Registration Date: 11/08/16 Care time: The patient presented to the Emergency Department on the above date and was hospitalized for further evaluation of their emergent condition. - New Patient This patient is new to me today: No - Critical Care Critical Care patient: No
[2016-11-11] MEDS: cefTRIAXone 1 GM/50 ML BAG (PRE-DOCKED) IVPB SCH (10:52)
[2016-11-11] MEDS ORDERED: INSULIN (NOVOLOG) ASPART 100 UNITS/ML 10ML VIAL ONE (10:58)
[2016-11-11 12:29] LABS: MCH 27.3 pg (25.7-33.7); MEAN CELL VOLUME 82.7 fl (80-96); MEAN PLT VOLUME 7.4 fl (7.5-11.1); PLATELET COUNT 293 K/MM3 (134-434); RDW 13.9 % (11.6-15.6); WHITE BLOOD COUNT 10.6 K/mm3 (4.0-10.0)
[2016-11-11 12:58] LABS: ALBUMIN 3.4 g/dl (3.4-5.0); CALCIUM 9.5 mg/dL (8.5-10.1); COCKROFT - GAULT 65.8835; CREATININE 1.3 mg/dL (0.55-1.02)
[2016-11-11 13:00] LABS: BILIRUBIN,TOTAL 0.6 mg/dL (0.2-1.0); TOT PROT 8.5 g/dl (6.4-8.2)
--- NOTE | 2016-11-11 13:24 | PN ---
Teaching Attending Note Name of Resident: Manda Champagne ATTENDING PHYSICIAN STATEMENT I saw and evaluated the patient. I reviewed the resident's note and discussed the case with the resident. I agree with the resident's findings and plan as documented. SUBJECTIVE: Patient feels tired. OBJECTIVE: Vital Signs Period Temp Pulse Resp BP Sys/Lara Pulse Ox Last 24 Hr 98 F-100.6 F 68-96 16-20 108-140/68-89 96-99 HEART: S1S2, RRR LUNGS: Clear ABDOMEN: Soft, non-tender, non-distended, normal BS EXTREMITIES: No edema ASSESSMENT AND PLAN: This is a 46-year-old woman with a history of type 2 DM, HTN, nephrolithiasis who presented to the ER for ureteral stent replacement. 1. Right renal stone with obstruction, s/p nephrostomy 10/19 - Stent attempted by IR yesterday and second nephrostomy tube had to be placed secondary to pus - CT today - Urology follow up 2. Acute kidney injury - Improved with IV fluid and holding Vasotec 3. E. coli UTI - Continue Rocephin (day 3), had one dose of Levaquin prior - CT to evaluate for pyelonephritis, abscess 4. Type 2 DM - Continue Novolog sliding scale 5. HTN - Vasotec held secondary to SHARON
--- NOTE | 2016-11-11 14:18 | PN ---
Progress Note (short form) - Note Progress Note: Case discussed and films reviewed at length w Shane Fenton and input from Dr. 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
[2016-11-11] MEDS ORDERED: SODIUM CHLORIDE 1,000 ML IV STA (16:33)
[2016-11-11] MEDS ORDERED: SODIUM CHLORIDE 1,000 ML IV SCH (16:45)
[2016-11-11] MEDS: ACETAMINOPHEN 325 MG TABLET (FP) PO PRN (19:02)
[2016-11-12] MEDS: INSULIN SLIDING SCALE (NOVOLOG) 1 VIAL SQ SCH ×6 (03:26→21:59)
[2016-11-12] MEDS: ACETAMINOPHEN 325 MG TABLET (FP) PO PRN ×2 (04:01→22:01)
[2016-11-12 08:10] LABS: MCH 27.5 pg (25.7-33.7); MCHC 33.1 g/dl (32.0-36.0); MEAN CELL VOLUME 83.2 fl (80-96); MEAN PLT VOLUME 7.3 fl (7.5-11.1); PLATELET COUNT 236 K/MM3 (134-434); RDW 14.2 % (11.6-15.6); WHITE BLOOD COUNT 7.8 K/mm3 (4.0-10.0)
--- NOTE | 2016-11-12 08:12 | PN ---
Physical Exam: SUBJECTIVE: Patient seen and examined by me at bedside. Patient offers no complaints today. No overnight events noted. Patient seen by urology and IR. Will continue and maintain both right nephrostomy tubes. Overnight 600mls drained. renal scan to be done to determine function, as per urology. Otherwise, patient denies fever, chills, nausea, vomiting, abdominal pain, chest pain, shortness of breath, palpitations, dysuria. OBJECTIVE: Vital Signs Period Temp Pulse Resp BP Sys/Lara Pulse Ox Last 24 Hr 98.0 F-99.9 F 91-109 18-22 112-123/68-76 99-99 GENERAL: The patient is awake, alert, and fully oriented, in no acute distress. LUNGS: Breath sounds equal, clear to auscultation bilaterally, no wheezes, no crackles, no accessory muscle use. HEART: Regular rate and rhythm, S1, S2 without murmur, rub or gallop. ABDOMEN: Soft, mild RLQ tenderness upon palpation, nondistended, no guarding, no suprapubic tenderness. Two Right Nephrostomy tube with serosanguinous drainage- 600mls. EXTREMITIES: No peripheral edema Laboratory Results - last 24 hr 11/11/16 11/11/16 11/11/16 10:50 12:20 12:20 WBC 10.6 H D RBC 5.35 H Hgb 14.6 Hct 44.3 MCV 82.7 MCHC 33.0 RDW 13.9 Plt Count 293 MPV 7.4 L Sodium 136 Potassium 4.1 Chloride 97 L Carbon Dioxide 26 Anion Gap 13 BUN 16 Creatinine 1.3 H D Creat Clearance w eGFR 43.90 POC Glucometer 211 Random Glucose 233 H D Calcium 9.5 Total Bilirubin 0.6 D AST 14 L ALT 27 Alkaline Phosphatase 128 H Total Protein 8.5 H Albumin 3.4 11/11/16 11/12/16 11/12/16 21:50 03:24 06:20 WBC RBC Hgb Hct MCV MCHC RDW Plt Count MPV Sodium Potassium Chloride Carbon Dioxide Anion Gap BUN Creatinine Creat Clearance w eGFR POC Glucometer 313 199 189 Random Glucose Calcium Total Bilirubin AST ALT Alkaline Phosphatase Total Protein Albumin Active Medications Generic Name Dose Route Start Last Admin Trade Name Freq PRN Reason Stop Dose Admin Acetaminophen 650 mg 11/09/16 21:42 11/12/16 04:01 Tylenol - PO 650 mg Q4H PRN Administration FEVER OR PAIN Ceftriaxone Sodium 1 gm 11/09/16 10:00 11/11/16 10:52 Rocephin 1gm Ivpb (Pre-Docked) IVPB 1 gm DAILY MORENITA Administration Insulin Aspart 1 vial 11/08/16 21:15 11/12/16 06:24 Novolog Vial Sliding Scale - SQ 2 units Q4HPO MORENITA Administration Protocol ASSESSMENT/PLAN: 46yo F w/ PMHx of obstructive nephrolithiasis s/p nephrostomy tube on 10/19/2016 , IDDM, and HTN, who was sent here by urologist Dr. Alcantar for right nephrostomy tube replacement and lithotripsy. Admitted to med/surg for further monitoring and management. Nephrolithiasis s/p right nephrostomy tube -Attempted ureteral stent but unsuccessful due to obstruction and purulent drainage so a second right nephrostomy tube placed. -Right nephrostomy tube replacement, lithotripsy, and stent placement cancelled due to possible infection -CT of abdo/pelvis revealed no abscess but multiple stones in the right kidney with moderate hydronephrosis -Renal scan ordered, as per urology -Pain control with Tylenol 650mg Q4H PRN -ID consult placed Acute Renal Failure- Improved -Secondary to obstructive nephrolithiasis and hydronephrosis -Creatinine tending downwards since 11/08/16 and improved with IV fluids -Avoid nephrotoxic medications Urinary Tract Infection -U/A revealed 3+ Leukocyte Esterase on 11/08 -Clean catch urine cultures show E.coli -Ceftriaxone 1gm Day #4 for urological procedure tomorrow IDDM -Oral agents on hold -ISS -BGM HTN -Enalapril on hold due to ARF -Blood pressure controlled -Continue to monitor BP F/E/N -No IV fluids -Electrolytes wnl -Diabetic diet Prophylaxis -Ambulates Disposition -Continue IV Abx. ID consult placed for further recommendations Visit type - Emergency Visit Emergency Visit: Yes ED Registration Date: 11/08/16 Care time: The patient presented to the Emergency Department on the above date and was hospitalized for further evaluation of their emergent condition. - New Patient This patient is new to me today: No - Critical Care Critical Care patient: No
[2016-11-12 08:39] LABS: CALCIUM 8.9 mg/dL (8.5-10.1); COCKROFT - GAULT 85.6545
[2016-11-12] MEDS: cefTRIAXone 1 GM/50 ML BAG (PRE-DOCKED) IVPB SCH (10:43)
--- NOTE | 2016-11-12 11:46 | MSN ---
Progress Note (SOAP) - Subjective Chief Complaint: Right nephrostomy tube exchange with lithotripsy History of Present Illness: Dr Alcantar, urology, saw patient yesterday. stated procedure will be delayed until infection resolved. Today, patient's urine culture from nephrostomy tube grew gram negative lactose fermenting bacteria. Both nephrostomy bags are draining slightly blood-tinged, light yellow urine. Today, the patient admits to some RUQ tenderness and right sided back pain. She denies fever, chills, N/V, constipation, diarrhea, dysuria, hematuria, suprapubic pain, chest pain or shortness of breath. - Current Medications Current Medications: Active Medications Acetaminophen (Tylenol -) 650 mg PO Q4H PRN PRN Reason: FEVER OR PAIN Last Admin: 11/12/16 04:01 Dose: 650 mg Ceftriaxone Sodium (Rocephin 1gm Ivpb (Pre-Docked)) 1 gm IVPB DAILY MORENITA Last Admin: 11/12/16 10:43 Dose: 1 gm Insulin Aspart (Novolog Vial Sliding Scale -) 1 vial SQ Q4HPO MORENITA PRN Reason: Protocol Last Admin: 11/12/16 06:24 Dose: 2 units - Objective Vital Signs: Vital Signs Temperature 99.9 F H 11/12/16 05:54 Pulse Rate 101 H 11/12/16 05:54 Respiratory Rate 20 11/12/16 05:54 Blood Pressure 112/76 11/12/16 05:54 O2 Sat by Pulse Oximetry (%) 99 11/12/16 00:24 Constitutional: Yes: Well Nourished, No Distress, Calm Cardiovascular: Yes: WNL, Regular Rate and Rhythm, S1, S2. No: Murmur, Rub Respiratory: Yes: WNL, Regular, CTA Bilaterally. No: Cough, Rales, Rhonchi, SOB , Wheezes Gastrointestinal: Yes: WNL, Normal Bowel Sounds, Soft, Tenderness (RUQ) Peripheral Pulses WNL: Yes Edema: No Wound/Incision: Yes: Clean/Dry, Well Approximated, Dressing Dry and Intact Psychiatric: Yes: WNL, Alert, Oriented Labs Lab Results: CBC, BMP 11/12/16 07:55 11/12/16 07:55 Laboratory Results - last 24 hr 11/11/16 11/11/16 11/11/16 12:20 12:20 21:50 WBC 10.6 H D RBC 5.35 H Hgb 14.6 Hct 44.3 MCV 82.7 MCHC 33.0 RDW 13.9 Plt Count 293 MPV 7.4 L Sodium 136 Potassium 4.1 Chloride 97 L Carbon Dioxide 26 Anion Gap 13 BUN 16 Creatinine 1.3 H D Creat Clearance w eGFR 43.90 POC Glucometer 313 Random Glucose 233 H D Calcium 9.5 Total Bilirubin 0.6 D AST 14 L ALT 27 Alkaline Phosphatase 128 H Total Protein 8.5 H Albumin 3.4 11/12/16 11/12/16 11/12/16 03:24 06:20 07:55 WBC 7.8 RBC 4.61 Hgb 12.7 D Hct 38.3 MCV 83.2 MCHC 33.1 RDW 14.2 Plt Count 236 MPV 7.3 L Sodium Potassium Chloride Carbon Dioxide Anion Gap BUN Creatinine Creat Clearance w eGFR POC Glucometer 199 189 Random Glucose Calcium Total Bilirubin AST ALT Alkaline Phosphatase Total Protein Albumin 11/12/16 07:55 WBC RBC Hgb Hct MCV MCHC RDW Plt Count MPV Sodium 138 Potassium 3.9 Chloride 103 Carbon Dioxide 27 Anion Gap 8 BUN 13 Creatinine 1.0 D Creat Clearance w eGFR POC Glucometer Random Glucose 199 H Calcium 8.9 Total Bilirubin AST ALT Alkaline Phosphatase Total Protein Albumin Microbiology 11/10/16 18:15 Urine - Urine Nephrostomy Tube Urine Culture - Preliminary Lactose Fermenting Neg Bacilli 11/08/16 19:00 Urine - Urine Clean Catch Urine Culture - Final Escherichia Coli Last Vital Signs Temp Pulse Resp BP Pulse Ox 99.9 F H 101 H 20 112/76 99 11/12/16 05:54 11/12/16 05:54 11/12/16 05:54 11/12/16 05:54 11/12/16 00:24 Assessment/Plan 46yo F w/ PMHx of obstructive nephrolithiasis s/p nephrostomy tube on 10/19/2016 , IDDM, and HTN, who was sent here by urologist Dr. Alcantar for right nephrostomy tube replacement and lithotripsy. Admitted to med/surg for right kidney infection. Nephrolithiasis s/p right nephrostomy tube -Stent placement via IR on 11/10 was unsuccessful. Nephrostomy tube change and lithotripsy cancelled due to ongoing infection. -nephrostomy tube urine culture grew gram negative lactose fermenting bacteria -CT scan shows right sided staghorn calculi, and hydronephrosis. -will order renal scan -Pain control as needed -not on anticoagulation or antiplatelet therapy Urinary Tract Infection -U/A revealed 3+ Leukocyte Esterase on 11/08 -Clean catch urine cultures and nephrostomy bag urine cultures show gram negative lactose fermenting bacilli -Ceftriaxone 1gm Day 4 Acute Renal Failure -secondary to obstructive nephrolithiasis -Creatinine 1.0, better vs 11/08/16 -Avoid nephrotoxic medications IDDM -Oral agents on hold -ISS -BGM HTN -Enalapril on hold due to ARF -Blood pressure controlled -Continue to monitor BP F/E/N -No IV fluids -Electrolytes wnl -Diabetic Diet. Prophylaxis -Ambulates Disposition -will continue antibiotics and monitor vitals/lab. renal scan tomorrow 11/13
[2016-11-12] MEDS ORDERED: INSULIN (NOVOLOG) ASPART 100 UNITS/ML 10ML VIAL ONE ×2 (12:07→21:59)
[2016-11-12] MEDS ORDERED: POLYETHYLENE GLYCOL 3350 119 GM BTL PO ONE (12:15)
--- NOTE | 2016-11-12 15:57 | PN ---
Progress Note (short form) - Note Progress Note: ID Consult dictated Nephrolithiasis/ obstructive uropathy S/P PCN UTI/ Possible sepsis secondary to UTI Low grade fever/ leukocytosis Obtain blood c/s Continue ceftriaxone
--- NOTE | 2016-11-12 16:43 | PN ---
Teaching Attending Note Name of Resident: Manda Champagne ATTENDING PHYSICIAN STATEMENT I saw and evaluated the patient. I reviewed the resident's note and discussed the case with the resident. I agree with the resident's findings and plan as documented. SUBJECTIVE: Patient has no complaints. OBJECTIVE: Vital Signs Period Temp Pulse Resp BP Sys/Lara Pulse Ox Last 24 Hr 99.2 F-99.9 F 91-101 20-20 112-123/76-76 99 HEART: S1S2, RRR LUNGS: Clear ABDOMEN: Soft, non-tender, non-distended, normal BS EXTREMITIES: No edema ASSESSMENT AND PLAN: This is a 46-year-old woman with a history of type 2 DM, HTN, nephrolithiasis who presented to the ER for ureteral stent replacement. 1. Right renal stone with obstruction, s/p nephrostomy 10/19 - Stent attempted by IR and second nephrostomy tube had to be placed secondary to pus - CT abdomen/pelvis showed scarring, mild hydronephrosis and tiny calcific density of left kidney, multiple stones in right kidney, possible right staghorn calculs, marked right hydronephrosis with markedly dilated calyces - Plan for renal scan followed by ureteroscopy if function is good or right nephrectomy for chronic infection if function is poor 2. Acute kidney injury - Improved with IV fluid and holding Vasotec 3. E. coli UTI - Continue Rocephin (day 4), had one dose of Levaquin prior 4. Type 2 DM - Continue Novolog sliding scale 5. HTN - Vasotec held secondary to SHARON
--- NOTE | 2016-11-12 18:58 | CONS ---
DATE OF CONSULTATION: DATE OF DICTATION: 11/12/2016 A 46-year-old female with a history of nephrolithiasis, evaluated for sepsis secondary to urinary tract focus. The patient has a history of nephrolithiasis. She underwent right percutaneous nephrostomy in August of 2016 for an obstructive uropathy secondary to kidney stones. She was scheduled to have an elective replacement of the nephrostomy tube in October. She was now admitted for an elective change of the percutaneous nephrostomy tube on November 10, 2016. An attempt to replace the nephrostomy was unsuccessful. She was found to have gross purulent drainage from the tube insertion site and a 2nd nephrostomy tube was placed. Yesterday the patient developed low-grade fever and elevated white blood cell count. Cultures of urine have grown E coli sensitive to ceftriaxone. She denies any high-grade fever or shaking chills. No complaints of right flank pain at the present time. She denies dysuria or hematuria. Past medical history positive for diabetes mellitus, hypertension, nephrolithiasis. PAST SURGICAL HISTORY: Status post percutaneous nephrostomy. No known allergies. Medications include ceftriaxone, insulin, Tylenol. SOCIAL HISTORY: She lives at home. Nonsmoker, nondrinker. LABORATORY DATA: White count 7.8, hematocrit 38.3, platelet count 236, BUN 13, creatinine 1.0. Urine culture growing lactose-fermented. Previous urine culture positive for E coli. PHYSICAL EXAMINATION: General: She is out of bed to chair. She is not acutely toxic appearing. Vital Signs: Temperature 99.5, T-max of 100.6. Blood pressure 112/76. Pulse 99, regular. Respiration 20 per minute. Eyes: Sclerae anicteric. Heart Sounds: S1, S2. Lungs: Clear. Abdomen: Soft. Slight right CVA tenderness. Two nephrostomy tubes are in place, 1 nephrostomy tube bag draining clear yellow urine, 2nd nephrostomy tube draining turbid bloody urine. Extremities: Negative for edema. IMPRESSION: 1. Nephrolithiasis/obstructive uropathy. 2. Status post percutaneous nephrostomy. 3. Urinary tract infection, possible sepsis secondary to urinary tract infection. 4. Low-grade fever/leukocytosis. Obtain blood cultures to rule out bacteremia. Continue ceftriaxone. I suspect we are dealing with obstructive uropathy leading to urosepsis rather than an antibiotic issue. Management of nephrolithiasis and obstructive uropathy as per Urology. Await blood culture results. Thank you for the kind referral. FEDERICO BYRNE M.D. [id number]
[2016-11-13] MEDS ORDERED: INSULIN (NOVOLOG) ASPART 100 UNITS/ML 10ML VIAL ONE ×5 (02:08→21:10)
[2016-11-13] MEDS: INSULIN SLIDING SCALE (NOVOLOG) 1 VIAL SQ SCH ×6 (02:09→21:11)
--- NOTE | 2016-11-13 06:56 | PN ---
Physical Exam: SUBJECTIVE: Patient seen and examined by me at bedside. Patient states she is doing much better today but still have pain and tenderness in the right flank area. No overnight events noted. Patient is to have a renal scan done today. Otherwise, denies fever, chills, nausea, vomiting, diarrhea, chest pain, palpitations, shortness of breath. OBJECTIVE: Vital Signs Period Temp Pulse Resp BP Sys/Lara Pulse Ox Last 24 Hr 98.4 F-99.5 F 81-99 18-20 106-129/70-91 96-99 GENERAL: The patient is awake, alert, and fully oriented, in no acute distress. LUNGS: Breath sounds equal, clear to auscultation bilaterally, no wheezes, no crackles, no accessory muscle use. HEART: Regular rate and rhythm, S1, S2 without murmur, rub or gallop. ABDOMEN: Soft, mild RLQ tenderness upon palpation, nondistended, no guarding, no suprapubic tenderness. Two Right Nephrostomy tube with serosanguinous drainage- 450mls overnight EXTREMITIES: No peripheral edema Laboratory Results - last 24 hr 11/12/16 11/12/16 11/12/16 07:55 07:55 11:43 WBC 7.8 RBC 4.61 Hgb 12.7 D Hct 38.3 MCV 83.2 MCHC 33.1 RDW 14.2 Plt Count 236 MPV 7.3 L Sodium 138 Potassium 3.9 Chloride 103 Carbon Dioxide 27 Anion Gap 8 BUN 13 Creatinine 1.0 D POC Glucometer 289 Random Glucose 199 H Calcium 8.9 11/12/16 11/12/16 11/13/16 16:52 21:56 02:06 WBC RBC Hgb Hct MCV MCHC RDW Plt Count MPV Sodium Potassium Chloride Carbon Dioxide Anion Gap BUN Creatinine POC Glucometer 257 195 245 Random Glucose Calcium Active Medications Generic Name Dose Route Start Last Admin Trade Name Freq PRN Reason Stop Dose Admin Acetaminophen 650 mg 11/09/16 21:42 11/12/16 22:01 Tylenol - PO 650 mg Q4H PRN Administration FEVER OR PAIN Ceftriaxone Sodium 100 mls @ 200 mls/hr 11/13/16 10:00 Rocephin 2gm Ivpb (Pre-Docked) IVPB DAILY MORENITA Insulin Aspart 1 vial 11/08/16 21:15 11/13/16 06:28 Novolog Vial Sliding Scale - SQ 4 units Q4HPO MORENITA Administration Protocol ASSESSMENT/PLAN: 46yo F w/ PMHx of obstructive nephrolithiasis s/p nephrostomy tube on 10/19/2016 , IDDM, and HTN, who was sent here by urologist Dr. Alcantar for right nephrostomy tube replacement and lithotripsy. Admitted to med/surg for further monitoring and management. Nephrolithiasis s/p right nephrostomy tube -Attempted ureteral stent but unsuccessful due to obstruction and purulent drainage so a second right nephrostomy tube placed. -450mls of serosanguinous fluid drained from both nephrostomy tubes combined -Right nephrostomy tube replacement, lithotripsy, and stent placement cancelled due to possible infection -CT of abdo/pelvis revealed no abscess but multiple stones in the right kidney with moderate hydronephrosis -Renal scan today, as per urology -Pain control with Tylenol 650mg Q4H PRN -ID consult appreciated Acute Renal Failure- Improved -Secondary to obstructive nephrolithiasis and hydronephrosis -Creatinine tending downwards since 11/08/16 and improved with IV fluids -Avoid nephrotoxic medications Urinary Tract Infection -U/A revealed 3+ Leukocyte Esterase on 11/08 -Clean catch urine cultures show E.coli -Ceftriaxone 1gm Day #5 for urological procedure tomorrow IDDM -Oral agents on hold -ISS -BGM HTN -Enalapril on hold due to ARF -Blood pressure controlled -Continue to monitor BP F/E/N -No IV fluids -Electrolytes wnl -Diabetic diet Prophylaxis -Ambulates Disposition -Continue IV Abx and will go for renal scan today Visit type - Emergency Visit Emergency Visit: Yes ED Registration Date: 11/08/16 Care time: The patient presented to the Emergency Department on the above date and was hospitalized for further evaluation of their emergent condition. - New Patient This patient is new to me today: No - Critical Care Critical Care patient: No
[2016-11-13 07:29] LABS: MCH 27.6 pg (25.7-33.7); MCHC 33.3 g/dl (32.0-36.0); MEAN PLT VOLUME 7.5 fl (7.5-11.1); PLATELET COUNT 238 K/MM3 (134-434); RDW 14.4 % (11.6-15.6); WHITE BLOOD COUNT 7.1 K/mm3 (4.0-10.0)
[2016-11-13 07:54] LABS: CALCIUM 8.9 mg/dL (8.5-10.1); COCKROFT - GAULT 95.1745; CREATININE 0.9 mg/dL (0.55-1.02)
[2016-11-13] MEDS: ACETAMINOPHEN 325 MG TABLET (FP) PO PRN (08:20)
[2016-11-13] MEDS ORDERED: DOCUSATE SODIUM 100 MG CAPSULE (FP) PO PRN (09:18)
--- NOTE | 2016-11-13 09:27 | MSN ---
Progress Note (SOAP) - Subjective Chief Complaint: Right nephrostomy tube exchange with lithotripsy History of Present Illness: Pt seen and examined at bedside. Patient admits to some RUQ tenderness, right sided back pain and abdominal distention. She denies fever, chills, N/V, diarrhea, dysuria, hematuria, suprapubic pain, headache, chest pain or shortness of breath. She is asking about d/c date. One nephrostomy bag is draining slightly blood-tinged light yellow urine. Other bag draining turbid red -tingled urine. - Current Medications Current Medications: Active Medications Acetaminophen (Tylenol -) 650 mg PO Q4H PRN PRN Reason: FEVER OR PAIN Last Admin: 11/13/16 08:20 Dose: 650 mg Docusate Sodium (Colace -) 100 mg PO BID PRN PRN Reason: CONSTIPATION Ceftriaxone Sodium (Rocephin 2gm Ivpb (Pre-Docked)) 100 mls @ 200 mls/hr IVPB DAILY MORENITA Insulin Aspart (Novolog Vial Sliding Scale -) 1 vial SQ Q4HPO MORENITA PRN Reason: Protocol Last Admin: 11/13/16 06:28 Dose: 4 units Polyethylene Glycol (Miralax (For Daily Use) -) 17 gm PO DAILY MORENITA - Objective Vital Signs: Vital Signs Temperature 98.2 F 11/13/16 08:00 Pulse Rate 80 11/13/16 08:00 Respiratory Rate 18 11/13/16 08:00 Blood Pressure 95/68 11/13/16 08:00 O2 Sat by Pulse Oximetry (%) 96 11/12/16 21:00 Constitutional: Yes: Well Nourished, No Distress, Calm Eyes: Yes: WNL, Conjunctiva Clear Cardiovascular: Yes: WNL, Regular Rate and Rhythm. No: Gallop, Murmur, Rub Respiratory: Yes: WNL, Regular, CTA Bilaterally. No: Cough, Rales, Rhonchi, SOB , Wheezes Gastrointestinal: Yes: WNL, Soft, Distention, Hypoactive Bowel Sounds, Tenderness (RUQ) Wound/Incision: Yes: Clean/Dry, Dressing Dry and Intact Neurological: Yes: WNL, Alert, Oriented Psychiatric: Yes: WNL, Alert, Oriented Labs Lab Results: CBC, BMP 11/13/16 06:00 11/13/16 06:00 Laboratory Results - last 24 hr 11/12/16 11/12/16 11/12/16 11:43 16:52 21:56 WBC RBC Hgb Hct MCV MCHC RDW Plt Count MPV Sodium Potassium Chloride Carbon Dioxide Anion Gap BUN Creatinine POC Glucometer 289 257 195 Random Glucose Calcium 11/13/16 11/13/16 11/13/16 02:06 06:00 06:00 WBC 7.1 RBC 4.39 Hgb 12.1 Hct 36.4 MCV 83.0 MCHC 33.3 RDW 14.4 Plt Count 238 MPV 7.5 Sodium 138 Potassium 3.7 Chloride 100 Carbon Dioxide 25 Anion Gap 13 BUN 13 Creatinine 0.9 POC Glucometer 245 Random Glucose 239 H D Calcium 8.9 11/13/16 06:26 WBC RBC Hgb Hct MCV MCHC RDW Plt Count MPV Sodium Potassium Chloride Carbon Dioxide Anion Gap BUN Creatinine POC Glucometer 223 Random Glucose Calcium Last Vital Signs Temp Pulse Resp BP Pulse Ox 98.2 F 80 18 95/68 96 11/13/16 08:00 11/13/16 08:00 11/13/16 08:00 11/13/16 08:00 11/12/16 21:00 Assessment/Plan 46yo F w/ PMHx of obstructive nephrolithiasis s/p nephrostomy tube on 10/19/2016 , IDDM, and HTN, who was sent here by urologist Dr. Alcantar for right nephrostomy tube replacement and lithotripsy. Admitted to med/surg for right kidney infection. Nephrolithiasis s/p right nephrostomy tube -Stent placement via IR on 11/10 was unsuccessful. Nephrostomy tube change and lithotripsy cancelled due to ongoing infection. -nephrostomy tube urine culture grew gram negative lactose fermenting bacteria -CT scan shows right sided staghorn calculi, and hydronephrosis. -renal scan scheduled for today 11/13 -Pain control as needed Urinary Tract Infection -U/A revealed 3+ Leukocyte Esterase on 11/08 -Clean catch urine cultures and nephrostomy bag urine cultures show gram negative lactose fermenting bacilli -Ceftriaxone 1gm Day 5 Constipation -Miralax given 11/12. No BM reported. -Prescribed Miralax 17mg PO MORENITA -Colace 100mg PO BID PRN Acute Renal Failure -secondary to obstructive nephrolithiasis -Creatinine 1.0, better vs 11/08/16 -Avoid nephrotoxic medications IDDM -Oral agents on hold -ISS -BGM HTN -Enalapril on hold due to ARF -Blood pressure controlled -Continue to monitor BP F/E/N -No IV fluids -Electrolytes wnl -Diabetic Diet. Prophylaxis -Ambulates Disposition -renal scan scheduled for today, will continue antibiotics and monitor vitals/ lab.
[2016-11-13] MEDS: CEFTRIAXONE 100 ML IVPB SCH (09:46)
[2016-11-13] MEDS: POLYETHYLENE GLYCOL 3350 119 GM BTL PO SCH (09:46)
--- NOTE | 2016-11-13 16:07 | PN ---
Progress Note, Physician History of Present Illness: OOB in chair C/O mild R flank pain No recurrent fever WBC WNL Second urine c/s grew E coli (s) ceftriaxone - Current Medication List Current Medications: Active Medications Acetaminophen (Tylenol -) 650 mg PO Q4H PRN PRN Reason: FEVER OR PAIN Last Admin: 11/13/16 08:20 Dose: 650 mg Docusate Sodium (Colace -) 100 mg PO BID PRN PRN Reason: CONSTIPATION Last Admin: 11/13/16 14:48 Dose: 100 mg Ceftriaxone Sodium (Rocephin 2gm Ivpb (Pre-Docked)) 100 mls @ 200 mls/hr IVPB DAILY MORENITA Last Admin: 11/13/16 09:46 Dose: 200 mls/hr Insulin Aspart (Novolog Vial Sliding Scale -) 1 vial SQ Q4HPO MORENITA PRN Reason: Protocol Last Admin: 11/13/16 14:40 Dose: 6 units Polyethylene Glycol (Miralax (For Daily Use) -) 17 gm PO DAILY MORENITA Last Admin: 11/13/16 09:46 Dose: 17 grams - Objective Vital Signs: Vital Signs Temperature 98.0 F 11/13/16 13:57 Pulse Rate 90 11/13/16 13:57 Respiratory Rate 20 11/13/16 13:57 Blood Pressure 144/77 11/13/16 13:57 O2 Sat by Pulse Oximetry (%) 97 11/13/16 09:00 Constitutional: Yes: No Distress Eyes: Yes: Conjunctiva Clear Cardiovascular: Yes: Regular Rate and Rhythm, S1, S2 Respiratory: Yes: CTA Bilaterally Gastrointestinal: Yes: Normal Bowel Sounds, Soft. No: Tenderness Genitourinary: Yes: CVA Tenderness - Right Edema: No Labs: CBC, BMP 11/13/16 06:00 11/13/16 06:00 INR, PTT INR 1.07 (0.82-1.09) 11/10/16 08:00 Assessment/Plan Nephrolithiasis/ Obstructive uropathy S/P PCN x2 UTI/ possible sepsis secondary to UTI Await blood c/s Continue ceftriaxone
--- NOTE | 2016-11-13 16:56 | PN ---
Teaching Attending Note Name of Resident: Manda Champagne ATTENDING PHYSICIAN STATEMENT I saw and evaluated the patient. I reviewed the resident's note and discussed the case with the resident. I agree with the resident's findings and plan as documented. SUBJECTIVE: Patient has no complaints. OBJECTIVE: Vital Signs Period Temp Pulse Resp BP Sys/Lara Pulse Ox Last 24 Hr 98.0 F-98.9 F 80-94 18-20 95-144/68-91 96-97 HEART: S1S2, RRR LUNGS: Clear ABDOMEN: Soft, non-tender, non-distended, normal BS EXTREMITIES: No edema ASSESSMENT AND PLAN: This is a 46-year-old woman with a history of type 2 DM, HTN, nephrolithiasis who presented to the ER for ureteral stent replacement. 1. Right renal stone with obstruction, s/p nephrostomy 10/19 - Stent attempted by IR and second nephrostomy tube had to be placed secondary to pus - CT abdomen/pelvis showed scarring, mild hydronephrosis and tiny calcific density of left kidney, multiple stones in right kidney, possible right staghorn calculs, marked right hydronephrosis with markedly dilated calyces - Renal scan pending 2. Acute kidney injury - Improved with IV fluid and holding Vasotec 3. E. coli UTI - Continue Rocephin (day 5), had one dose of Levaquin prior 4. Type 2 DM - Continue Novolog sliding scale 5. HTN - Vasotec held secondary to SHARON
[2016-11-14] MEDS ORDERED: INSULIN (NOVOLOG) ASPART 100 UNITS/ML 10ML VIAL ONE ×3 (01:35→09:41)
[2016-11-14] MEDS: INSULIN SLIDING SCALE (NOVOLOG) 1 VIAL SQ SCH ×4 (01:36→14:55)
[2016-11-14] MEDS: ACETAMINOPHEN 325 MG TABLET (FP) PO PRN (05:23)
[2016-11-14] MEDS: POLYETHYLENE GLYCOL 3350 119 GM BTL PO SCH (09:44)
[2016-11-14] MEDS: CEFTRIAXONE 100 ML IVPB SCH (09:45)
--- NOTE | 2016-11-14 11:21 | PN ---
Teaching Attending Note Name of Resident: Manda Champagne ATTENDING PHYSICIAN STATEMENT I saw and evaluated the patient. I reviewed the resident's note and discussed the case with the resident. I agree with the resident's findings and plan as documented. SUBJECTIVE: Patient has no complaints. OBJECTIVE: Vital Signs Period Temp Pulse Resp BP Sys/Lara Pulse Ox Last 24 Hr 98.0 F-99 F 85-90 20-20 110-144/75-81 96 HEART: S1S2, RRR LUNGS: Clear ABDOMEN: Soft, non-tender, non-distended, normal BS EXTREMITIES: No edema ASSESSMENT AND PLAN: This is a 46-year-old woman with a history of type 2 DM, HTN, nephrolithiasis who presented to the ER for ureteral stent replacement. 1. Right renal stone with obstruction, s/p nephrostomy 10/19 - Stent attempted by IR and second nephrostomy tube had to be placed secondary to pus - CT abdomen/pelvis showed scarring, mild hydronephrosis and tiny calcific density of left kidney, multiple stones in right kidney, possible right staghorn calculs, marked right hydronephrosis with markedly dilated calyces - Renal scan: Left kidney 75% of total renal function with stasis in left renal calyces. Severe outlet obstruction in right kidney which contributes 25% of total renal function 2. Acute kidney injury - Improved with IV fluid and holding Vasotec 3. E. coli UTI - Continue Rocephin (day 5), had one dose of Levaquin prior 4. Type 2 DM - Continue Novolog sliding scale 5. HTN - Vasotec held secondary to SHARON 6. Discharge home with nephrostomy tubes, on PO antibiotics x 7 more days, with follow-up for ureteroscopy
[2016-11-14 11:49] VITALS: PULSE 77
--- NOTE | 2016-11-14 13:35 | PROC ---
Procedure Note Procedure: Pt clinically stable May d/c home w nt in place Cont po levaquin Will arrange elective ureteroscopy for right kidney w split function at 25 % will follow in office one week
--- NOTE | 2016-11-14 13:50 | DS ---
Physical Exam: SUBJECTIVE: Patient seen and examined by me at bedside. No overnight events noted. Patient offers no complaints except for mild Right flank, which is chronic from her chronic nephrolithiasis s/p two nephrostomy tube placements. Otherwise, patient denies fever, chills, nausea, vomiting, headache, chest pain , palpitations, shortness of breath. OBJECTIVE: Vital Signs Period Temp Pulse Resp BP Sys/Lara Pulse Ox Last 24 Hr 98.0 F-99 F 77-90 20-20 110-144/75-81 96-96 PHYSICAL EXAM GENERAL: The patient is awake, alert, and fully oriented, in no acute distress. LUNGS: Breath sounds equal, clear to auscultation bilaterally, no wheezes, no crackles, no accessory muscle use. HEART: Regular rate and rhythm, normal S1 and S2 without murmur, rub or gallop. ABDOMEN: Soft, mild RLQ tenderness upon palpation, nondistended, no guarding, no suprapubic tenderness. Two Right Nephrostomy tube with serosanguinous drainage- 500mls overnight EXTREMITIES: No peripheral edema LABS Laboratory Results - last 24 hr 11/13/16 11/13/16 11/13/16 14:38 18:15 21:08 POC Glucometer 276 248 270 11/14/16 11/14/16 11/14/16 01:33 05:52 09:49 POC Glucometer 193 203 293 HOSPITAL COURSE: Patient is a 46 year old female with a PMHx of IDDM, HTN, and obstructive nephrolithiasis s/p nephrostomy on 10/19/2016 who was sent here by her urologist Dr. Alcantar for a right nephrostomy tube placement and lithotripsy. Patient was found to have a UTI with 3+ Leukocyte Esterase associated with hydronephrosis and acute renal failure. Patient was then sent to IR for an attempt to place a ureteral stent but was unsuccessful due to obstruction and purulent drainage. A second right nephrostomy tube was then placed. CT abdomen/ pelvis revealed multiple stones in the right kidney with moderate hydronephrosis. Patient was placed on Ceftriaxone 1gm daily for UTI and possible urology procedure. Throughout the course patient was afebrile without leukocytosis. Urine cultures were positive for E. Coli and blood cultures were NGTD. Renal scan was done and revealed 25% function of the right kidney. Patients UTI and Acute renal function improved. Spoke to Urology about discharging patient and having her follow up next week once the course of antibiotics are completed. Patient is to be discharged with PO Keflex for 7 days and is to follow up with Urology for replacement of nephrostomy tube and lithotripsy. Date of Admission:11/08/16 Date of Discharge: 11/14/16 Minutes to complete discharge: 45 Discharge Summary Reason For Visit: COMPLICATION OF NEPHROSTOMY,UTI, CALCULUS OF KIDNE Current Active Problems Kidney calculus (Acute) Nephrostomy complication (Acute) UTI (urinary tract infection) (Acute) Condition: Stable - Instructions Diet, Activity, Other Instructions: -You may resume regular diet. -You will be sent home with both nephrostomy tubes in place and will need to drain your nephrostomy tubes, which you have been doing prior to admission. 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 You will be taking Keflex. -You will need to call Dr. Alcantar on Wednesday and follow up with him within a week. -You will need to follow up with your primary care physician within a week. -If you experience worsening symptoms or any symptoms such as fever >101.0 F, severe abdominal pain or back pain without relief of medication, please return to the emergency department. Referrals: Marcello Alcantar MD., [Staff Physician] - Son Frank [Primary Care Provider] - Disposition: HOME - Home Medications Comprehensive Discharge Medication List: Ambulatory Orders Enalapril Maleate [Vasotec] 20 mg PO BID 11/08/16 Insulin Regular [NOVOLIN R VIAL *IVPUSH / ER / ICU Only*] 10 units SQ TID Metformin HCl [Metformin HCl ER] 1,000 mg PO DAILY 11/08/16 This patient is new to me today: No Emergency Visit: Yes ED Registration Date: 11/08/16 Care time: The patient presented to the Emergency Department on the above date and was hospitalized for further evaluation of their emergent condition. Critical Care patient: No - Discharge Referral Referred to [facility] Med P.C.: No
[2016-11-14 14:49] VITALS: BP 134/69; TEMP 98.2
== END 2016-11-14 16:19 | disposition home or self-care (01) | DRG 443 ==
LOC: JER 17:35 → JERBED 20:24 → J6S 23:48
PROVIDERS: ADMIT Internal Medicine; ATTEND Internal Medicine
PROC: 0T9030Z Drainage of Right Kidney with Drainage Device, Percutaneous Approach (ICD-10-PCS; principal; 2016-11-10)
PROC: BT11YZZ Fluoroscopy of Right Kidney using Other Contrast (ICD-10-PCS; 2016-11-10)
DX: N99.528 Other complication of incontinent external stoma of urinary tract (principal); N17.9 Acute kidney failure, unspecified; N39.0 Urinary tract infection, site not specified; N13.2 Hydronephrosis with renal and ureteral calculous obstruction; E78.5 Hyperlipidemia, unspecified; I10 Essential (primary) hypertension; E11.9 Type 2 diabetes mellitus without complications; Z79.4 Long term (current) use of insulin; B96.20 Unspecified Escherichia coli [E. coli] as the cause of diseases classified elsewhere; K59.00 Constipation, unspecified; Y83.8 Other surgical procedures as the cause of abnormal reaction of the patient, or of later complication, without mention of misadventure at the time of the procedure
CPT/HCPCS: 36415; 50432; 71020-TC; 74177-TC; 78707-TC; 80048; 80053; 81003; 81015; 84703; 85025; 85027; 85610; 85730; 86850; 86900; 86901; 87040; 87086; 87186; 93005; 93010; 99284-25; A4358; A9562; C1729; Q9967

== ENCOUNTER → 2016-11-19 | Day surgery (SDC) | payer OTHER ==
[~2016-11-19] MED LIST: ACETAMINOPHEN 325 MG TABLET (FP) ONE; DEXAMETHASONE SOD PHOSPHATE 4 MG/1 ML VIAL ONE; KETOROLAC TROMETHAMINE 30 MG/1 ML VIAL ONE; LIDOCAINE HCL/PF 2% SDV 5ML VIAL ONE; PROPOFOL 20 ML ONE
== END | disposition home or self-care (01) ==
LOC: JRADIR 13:22
PROVIDERS: ATTEND Urology
PROC: 0TP530Z Removal of Drainage Device from Kidney, Percutaneous Approach (ICD-10-PCS; principal; 2016-11-19)
DX: N20.0 Calculus of kidney (principal); Z43.6 Encounter for attention to other artificial openings of urinary tract
CPT/HCPCS: 50431; 74425-TC; 87086; C1769; C1887

== ENCOUNTER → 2016-12-01 | Day surgery (SDC) | payer OTHER ==
[2016-11-27 09:48] VITALS: BMI 29.8
[~2016-12-01] MED LIST changes: -ACETAMINOPHEN 325 MG TABLET (FP) ONE; +ACETAMINOPHEN 325 MG TABLET (FP) PO ONE; +ACETAMINOPHEN 500 MG TABLET (FP) PO PRN; -DEXAMETHASONE SOD PHOSPHATE 4 MG/1 ML VIAL ONE; +GENTAMICIN SO4 80 MG/2 ML VIAL IVPB ONE; -KETOROLAC TROMETHAMINE 30 MG/1 ML VIAL ONE; +LACTATED RINGERS SOLUTION 1,000 ML IV SCH; -LIDOCAINE HCL/PF 2% SDV 5ML VIAL ONE; +ONDANSETRON 4 MG/2 ML VIAL IVPUSH PRN; -PROPOFOL 20 ML ONE; +ceFAZolin SODIUM 1 GM VIAL IVPB ONE
[2016-12-01 10:50] LABS: URINE APPEARANCE SLCLOUDY; URINE BILIRUBIN NEGATIVE (NEGATIVE); URINE COLOR LTYELLOW; URINE GLUCOSE (UA) NEGATIVE (NEGATIVE); URINE KETONE NEGATIVE (NEGATIVE); URINE NITRITE NEGATIVE (NEGATIVE); URINE UROBILINOGEN NEGATIVE E.U./dl (0.2-1.0)
[2016-12-01 11:11] LABS: URINE BLOOD 1+ (NEGATIVE); URINE LEUK ESTERASE 3+ (NEGATIVE); URINE PROTEIN 1+ (NEGATIVE)
[2016-12-01 11:12] LABS: URINE BACTERIA RARE /hpf (NONE SEEN); URINE MUCUS RARE; URINE RBC 10 /hpf (0-3); URINE WBC 100 /hpf (3-5)
--- NOTE | 2016-12-01 11:32 | OP ---
Operative Note - Note: Operative Date: 12/01/16 Pre-Operative Diagnosis: Right renal calculi Operation: Right ureteroscopy laser lithotripsy stent placement Findings: Multiple 1 cm renal calculi Post-Operative Diagnosis: Same as Pre-op Surgeon: Marcello Alcantar MD. Anesthesia: MAC Estimated Blood Loss (mls): 15 Drains & Tubes with Location: 22 cm 6 fr DJ stent
[2016-12-01 13:28] VITALS: TEMP 98.4
[2016-12-01 17:30] VITALS: BP 120/75; PULSE 70
--- NOTE | 2016-12-02 09:26 | OP ---
DATE OF OPERATION: 12/01/2016 PREOPERATIVE DIAGNOSIS: Right renal calculi. POSTOPERATIVE DIAGNOSIS: Right renal calculi. PROCEDURE: Right ureteroscopy, laser lithotripsy, stent placement. HISTORY: This is a very pleasant 46-year-old female with a long history of renal calculi dating back to over 15 years ago. Patient had deferred treatment and had recurrent infections and hematuria. Patient recently was status post 2 percutaneous nephrostomies, at which time pus was obtained. The calices did not communicate with the renal pelvis. Anatomically, she has a quite small renal pelvis with a very branched calyceal system. Since no access was able to be obtained percutaneously, the patient was offered a ureteroscopic approach. Of note is that she has multiple over 1-cm stones in each calyx. BRIEF OPERATIVE NOTE: Patient brought to the operating room, placed in the supine position where general anesthesia was administered. Patient transferred to dorsal lithotomy position, prepped and draped in standard sterile fashion. Intravenous antibiotics were given. She had received Kefzol and gentamicin. At this time a cystoscope sheath was placed into the bladder under direct vision. Bladder was otherwise unremarkable. The right ureteral orifice was accessed using a 0.03 Sensor wire. The dual-lumen catheter was passed over the wire. Retrograde ureteral pyelogram was performed. There was no contrast into the calices. The stones were visualized on the retrograde pyelogram. At this time a 7.5-Danish flexible ureteroscope was passed over the second wire. The wire was then withdrawn and the calyceal system was inspected. There was no evidence of calyceal opening in any of the 3 systems. Fluoroscopically, the middle pole was first accessed by using a holmium laser to open scar tissue in the direction of the stone which was determined fluoroscopically. Stone was then visualized. Using the laser setting of 1 joule and 10 MHz, the stone was fragmented into multiple small fragments. There is residual stone within the middle pole calyceal system. At this time attention was turned to the upper pole. In a similar fashion, there was no evidence of access to the upper pole. The scope was placed to the area adjacent to the stone, and the scar tissue was lasered open. Again stone was visualized in a similar fashion, and small amount of stone was fragmented from the upper pole. In a similar fashion, the lower pole was accessed and similarly stone was seen emanating and was fragmented with the laser. At this time a 6-Danish 20-cm double-J stent was passed over a guidewire and fluoroscopically confirmed to be in normal position. The bladder was drained. Patient was brought to the recovery room in stable and satisfactory condition. Dane [id number]
== END | disposition home or self-care (01) ==
LOC: JASU-SURG 09:46
PROVIDERS: ATTEND Urology
PROC: 0TF38ZZ Fragmentation in Right Kidney Pelvis, Via Natural or Artificial Opening Endoscopic (ICD-10-PCS; principal; 2016-12-01 11:00)
PROC: 0T768DZ Dilation of Right Ureter with Intraluminal Device, Via Natural or Artificial Opening Endoscopic (ICD-10-PCS; 2016-12-01 11:00)
DX: N20.0 Calculus of kidney (principal)
CPT/HCPCS: 81003; 81015; 84703; 94760